=== PATIENT | female | born 1960 | race Caucasian/White ===

== ENCOUNTER 2016-11-15 20:44 | Observation (INO) | payer OTHER ==
[2016-11-15] MEDS ORDERED: ASPIRIN 81 MG (BABY) CHEWABLE TABLET PO ONE (20:56)
[2016-11-15] MEDS ORDERED: NORMAL SALINE 10 ML SYRINGE FLUSH IVP PRN (20:56)
[2016-11-15] MEDS ORDERED: Sodium Chloride 0.9% 1,000 ML PRIMARY IV ONE (20:56)
--- NOTE | 2016-11-15 20:58 | EKG ---
[address] [address] Measurements Intervals [place] Rate: 80 P: 61 LA: 182 QRS: 45 QRSD: 89 T: 39 QT: 369 QTc: 405 Interpretive Statements SINUS RHYTHM No previous ECG available for comparison Electronically Signed On 11-16-16 12:25:49 MST by Michael Ruiz [id number]
[2016-11-15] MEDS: NITROGLYCERIN 0.4 MG SL TAB (BOTTLE OF 3) SL PRN ×2 (21:03→21:32)
[2016-11-15 21:12] LABS: BASOPHILS # (AUTO) 0.03 10*3/UL; BASOPHILS % (AUTO) 0.3 % (0-1); EOSINOPHILS % (AUTO) 1.7 % (0-8); HEMATOCRIT 40.4 % (37.0-47.0); HEMOGLOBIN 13.6 g/dL (12.0-16.0); IMM GRAN % (AUTO) 0.1 % (0-5); IMM GRAN# (AUTO) 0.01 10*3/UL; LYMPHOCYTES # (AUTO) 3.42 10*3/uL; LYMPHOCYTES % (AUTO) 39.9 % (10-50); MEAN CORPUSCULAR HGB CONC 33.7 g/dL (33-37); MEAN PLATELET VOLUME 11.4 FL (7.4-12.2); MONOCYTES # (AUTO) 0.37 10*3/UL (0.3-0.8); MONOCYTES % (AUTO) 4.3 % (5-15); NEUTROPHILS % (AUTO) 53.7 % (50-80); RDW COEFFICIENT OF VARIATION 13.3 % (11.5-14.5); RED BLOOD COUNT 4.53 10^6/uL (4.20-5.40); WHITE BLOOD COUNT 8.58 10^3/uL (4.8-10.8)
[2016-11-15 21:17] LABS: PLATELET MORPHOLOGY COMMENT NORMAL MORPHOLOGY (NORM)
[2016-11-15 21:20] LABS: BILIRUBIN,TOTAL 0.4 mg/dL (0.3-1.2); BUN/CREATININE RATIO 19.23 (6-20); CALCIUM 8.8 mg/dL (8.7-10.7); CREATININE 1.3 mg/dL (0.50-1.20); TOTAL PROTEIN 6.5 g/dL (6.1-8.0)
[2016-11-15 21:32] LABS: CREATINE KINASE MB 0.28 NG/DL (0.00-5.00)
[2016-11-15 21:33] LABS: TROPONIN I < 0.012 ng/mL (< 0.040)
[2016-11-15] MEDS ORDERED: MORPHINE SULFATE 4 MG/1 ML IVP ONE (21:49)
--- NOTE | 2016-11-15 22:03 | PDOC ---
Chest Pain HPI - General Chief Complaint: Chest Pain Stated Complaint: Chest pain Date Seen by Provider: 11/15/16 Time Seen by Provider: 20:40 Source: Patient, Spouse Exam Limitations: POSITIVE: No limitations Treatment Prior to Arrival: REPORTS: None Nurse's Notes Reviewed & Considered: Yes - History of Present Illness Initial Comments: The patient is a 55-year-old female. She states that approximately 1500 she developed some left arm discomfort. She states that around 1900 she began to develop some left-sided chest pain which she describes as "like a pressure"left anterior chest and below left breast. She also complains of her "lips feeling numb". Patient has a long-standing history of chronic low back pain for which she takes several medications. She does not smoke. She has no known history of cardiopulmonary problems. Body Location Affected: REPORTS: Chest Timing: REPORTS: Constant Duration: 1-3 hours Severity: Moderate Persistent/Worse since (date): 11/15/16 Persistent/Worse since (time): 19:30 Context: REPORTS: Rest Quality: REPORTS: "Pain", Pressure Radiation: REPORTS: Shoulder (L), Arm (L) Associated Symptoms: DENIES: Nausea, Vomiting, Diaphoresis, Shortness of Breath , Hurts to Breathe, Palpitations, Productive Cough (blood), Productive Cough ( sputum), Weakness, Dizziness Modifying Factors: improves with: None Reported Similar Symptoms Previously: No Recently seen/treated/hospitalized: No Any Prior Injuries Related to Current Complaint?: No - Patient Home Medications Home Medications: Home Medications Atorvastatin Calcium 1 tab PO DAILY #90 tab 11/10/16 Duloxetine HCl 1 cap PO DAILY #90 cap 11/10/16 Nebivolol HCl [Bystolic] 10 mg PO DAILY #90 tab 11/10/16 Pregabalin [Lyrica] 1 cap PO BID #60 cap 11/10/16 Sumatriptan Succinate 100 mg PO ONCE #18 tab 11/10/16 Topiramate 1 tab PO QD #90 tab 11/10/16 Tramadol HCl 2 tab PO Q4-6H #90 tab 11/10/16 Trazodone HCl 1 tab PO QHS #90 tab 11/10/16 Zolpidem Tartrate 1 tab PO QHS #30 tab 11/10/16 - Patient Allergies Allergies/Adverse Reactions: Allergies Allergy/AdvReac Type Severity Reaction Status Date / Time codeine AdvReac Severe DYSPHORIA Verified 11/15/16 21:00 Past Medical History - heen HEENT History: Denies History Cardiovascular History: Denies History Respiratory History: Denies History Gastrointestinal History: Denies History Genitourinary History: Denies History Endocrine History: Denies History Musculoskeletal History: Back Pain Neurological History: Denies History Blood Disorders: Denies History Psychiatric History: Denies History History of Sexually Transmitted Diseases: No Female Reproductive History: Denies History Obstetrical History: Denies History Cancer History: Denies History In Past Year Been Physically Harmed or Verbally Threatened: No History of MDRO: No History of Other Communicable Diseases: No Tobacco Use: Never Smoker Alcohol Use: Occasionally Substance Use Type: None Previous Surgical History: Yes Type / Date of Surgery: HYSTERECTOMY Significant Family History: No pertinent family hx Past Medical History Reviewed: Reviewed - No Changes ROS - Limitations ROS Limitations: No Limitations Constitution: REPORTS: Denies Symptoms Cardiovascular: REPORTS: Chest Pain Respiratory: REPORTS: Denies Resp Symptoms Neurological: REPORTS: Denies Neuro Symptoms Gastrointestinal: REPORTS: Denies GI Symptoms Endocrine: REPORTS: Denies Symptoms Musculoskeletal: REPORTS: Back Pain (Chronic) Genitourinary: REPORTS: Denies Symptoms Eyes: REPORTS: Denies Symptoms ENT: REPORTS: Denies Symptoms Skin: REPORTS: Denies Skin Symptoms Lympathic: REPORTS: Denies Lympathic Symptoms Immunologic: POSITIVE: Denies Symptoms Psychiatric: POSITIVE: Denies Psych Symptoms Chest Pain PE - General Appearance General Appearance: REPORTS: Alert, Cooperative, No Acute Distress, No Evidence of Trauma - HEENT HEENT: POSITIVE: Head Inspection Nml, Eyes Inspection Nml, Ears Inspection Nml, Nose Inspection Nml, Oral/Dental Inspect. Nml, Pharynx Inspect. Nml, PERRL, EOMI - Neck Neck: REPORTS: Normal Inspection, No Carotid Bruit - Respiratory Respiratory: REPORTS: No Respiratory Distress, Breath Sounds Normal, Chest Non- Tender - Cardiovascular Cardiovascular: REPORTS: Regular Rate and Rhythm, Heart Sounds Normal, Equal Pulses, Strong Pulses, No Murmur, No Gallop, No Friction Rub, No JVD Peripheral Pulses: Radial (R): 2+, Radial (L): 2+ - Abdomen Abdomen: Soft: (All Quadrants), Normal Bowel Sounds: (All Quadrants), Denies Tenderness: (All Quadrants), No Splenomegaly: (All Quadrants), No Hepatomegaly: (All Quadrants), No Guarding: (All Quadrants), No Rebound: (All Quadrants), No Palpable Pulse: (All Quadrants), No Palpabale Mass: (All Quadrants), No Distention: (All Quadrants), No Rigidity: (All Quadrants) - Skin Skin: REPORTS: Intact, Normal For Race, Warm, Dry, No Rash - Extremities Extremity: Non-Tender: (All Extremities), Normal ROM: (All Extremities), Normal Inspection: (All Extremities) - Neurological / Psychological Neurological: POSITIVE: Affect Apporpriate, Oriented X3, 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 Normal As Tested, Motor Normal, Sensation Normal Images - Complete Complete: 1 - Area of described discomfort Chest Pain Progress - Results Reviewed by me Xrays/CTs/US Reviewed by me: Yes Discussed with Radiologist: No Radiology Findings: Portable chest x-ray normal Lab Results Reviewed: Yes Lab Results:: Laboratory Results 11/15/16 Range/Units 21:10 WBC 8.58 (4.8-10.8) 10^3/uL RBC 4.53 (4.20-5.40) 10^6/uL Hgb 13.6 (12.0-16.0) g/dL Hct 40.4 (37.0-47.0) % MCV 89.2 (81-99) FL MCH 30.0 (27-31) PG MCHC 33.7 (33-37) g/dL RDW Std Deviation 42.8 (39-50) fL RDW Coeff of Nikki 13.3 (11.5-14.5) % Plt Count 253 (140-350) 10*3/uL MPV 11.4 (7.4-12.2) FL Immature Gran % (Auto) 0.1 (0-5) % Neut % (Auto) 53.7 (50-80) % Lymph % (Auto) 39.9 (10-50) % Bryan % (Auto) 4.3 L (5-15) % Eos % (Auto) 1.7 (0-8) % Baso % (Auto) 0.3 (0-1) % Immature Gran # (Auto) 0.01 10*3/UL Neut # (Auto) 4.60 10*3/UL Lymph # (Auto) 3.42 10*3/uL Bryan # (Auto) 0.37 (0.3-0.8) 10*3/UL Eos # (Auto) 0.15 10*3/UL Baso # (Auto) 0.03 10*3/UL WBC Morphology Comment Normal morphology (NORM) Plt Morphology Comment Normal morphology (NORM) RBC Morph Comment Normal morphology (NORM) D-Dimer 0.36 (0.00-0.59) mg/L Sodium 138 (135-145) meq/L Potassium 4.0 (3.8-5.2) meq/L Chloride 108 (98-112) meq/L Carbon Dioxide 21 L (23-33) meq/L Anion Gap 9 (5-20) BUN 25 H (7-22) mg/dL Creatinine 1.3 H (0.50-1.20) mg/dL Estimated GFR 43 (>60 ml/min/1.73m(2)) BUN/Creatinine Ratio 19.23 (6-20) Glucose 104 (78-110) mg/dL Calculated Osmolality 289.0 (267-292) mOsm/kg Calcium 8.8 (8.7-10.7) mg/dL Total Bilirubin 0.4 (0.3-1.2) mg/dL AST 33 (8-39) IU/L ALT 55 H (9-52) IU/L Alkaline Phosphatase 136 H (38-126) IU/L CK-MB (CK-2) 0.28 (0.00-5.00) NG/DL Troponin I < 0.012 (< 0.040) ng/mL Total Protein 6.5 (6.1-8.0) g/dL Albumin 3.7 (3.5-4.8) g/dL Globulin 2.8 (2.50-4.10) g/dL Albumin/Globulin Ratio 1.30 (1.3-2.0) mg/g EKG Interpreted/Reviewed By Me:: Yes EKG Interpretation:: POSITIVE: Normal Sinus Rhythm, Normal Rate, Normal Intervals, Normal Reader, Normal QRS, Normal ST/T - Patient's Progress Pain Medication Addressed: POSITIVE: Yes (Patient given nitroglycerin without much improvement; then given morphine sulfate with better improvement) School/Work Release Addressed: POSITIVE: Not Applicable Re-Examine Time: 21:50 Re-Examine Comment: Normal lab studies, electrocardiogram and chest x-ray discussed with patient. Patient is admitted for further evaluation and rule out cardiac event. Status: POSITIVE: Improved, Re-Examined Quality Measure Initiative: CP/AMI: POSITIVE: EKG, ASA - Consult Consult (If Yes, Name of Consulting MD & Time Called): Yes (Dr. Santiago, hospitalist, [id number]) Consulting MD will see pt:: POSITIVE: [facility] [place] Admit Counseled: POSITIVE: Patient, Family, RE: Lab Results, RE: Radiology Results, RE : DX, RE: Need for F/U Patient Care Time - Estimated PCT Patient Care Time (In Minutes): 45 Vital Signs - Recent Vital Signs Vital Signs: Vital Signs (Last 8 hours) Temp Pulse Pulse Resp BP Pulse Ox 11/15/16 20:44 97.9 F 80 80 20 130/75 93 - VS Reviewed Vital Signs Reviewed: Yes Discharge Clinical Impression: Chest pain Discharge Disposition: Admit to Inpatient Condition: Good Date Decision to Admit to Inpatient: 11/15/16 Time Decision to Admit to Inpatient: 21:45
--- NOTE | 2016-11-15 22:30 | PDOC ---
History and Physical - History of Present Illness Date and Time of Service: 11/15/2016 11:15 PM Chief Complaint: Chest pain that started tonight around 7 PM History of Present Illness: This is a 55 years old female with medical history significant for history of hypertension, hyperlipidemia, history of migraines and chronic back pain who came into the hospital with history of chest pain that started tonight around 7 PM. She said the last 7 days she's been having like shocking feeling in her hands that comes for few seconds and then goes away with some numbness in her hands. Tonight she started to develop chest pain felt in the left side of the chest under her breast went to the shoulder and was described as pressure there was also some squeezing pain in the left arm. Some shortness of breath she rated her pain maybe about 6 to 7 out of 10. Because of that she came into the ER she was given aspirin and nitroglycerin and that helped lower the pain level by a point or so then she was given morphine and then lowered it down to 3-4. then the patient was admitted for further evaluation. There is no nausea but there was some lightheadedness. Never had these symptoms before. She said she has issues with the back and she is suppose to see a surgeon coming Thursday. She's been taking her tramadol 3 times a day for the last 3 days usually prior to that she used to take it twice a day. Past Medical History Medical History: 1.Migraine with aura. 2. Benign hypertension. 3. Anxiety. 4. Depression. 5. Hyperlipidemia. 6. Degenerative disc disease, cervical Surgical History: 1.Appendectomy. 2. Hysterectomy. 3. Other musculoskeletal srg 2014 (fussion of back s1 l5). 4. Total Hip Replacement 2007 (left ) Pertinent Family History: Her dad had a pacemaker, grandparent had a heart attack Tobacco Use: Never Smoker Substance Use Type: None Alcohol Use: Occasionally Medication / Allergies Home Medications: Home Medications Medication Instructions Recorded Confirmed Type Atorvastatin Calcium 1 tab PO DAILY #90 tab 11/10/16 11/15/16 Clinic Duloxetine HCl 1 cap PO DAILY #90 cap 11/10/16 11/15/16 Clinic Nebivolol HCl [Bystolic] 10 mg PO DAILY #90 tab 11/10/16 11/15/16 Clinic Pregabalin [Lyrica] 1 cap PO BID #60 cap 11/10/16 11/15/16 Clinic Sumatriptan Succinate 100 mg PO ONCE #18 tab 11/10/16 11/15/16 Clinic Topiramate 1 tab PO QD #90 tab 11/10/16 11/15/16 Clinic Tramadol HCl 2 tab PO Q4-6H #90 tab 11/10/16 11/15/16 [facility] Trazodone HCl 1 tab PO QHS #90 tab 11/10/16 11/15/16 Clinic Zolpidem Tartrate 1 tab PO QHS #30 tab 11/10/16 11/15/16 Clinic Allergies/Adverse Reactions: Allergies Allergy/AdvReac Type Severity Reaction Status Date / Time codeine AdvReac Severe DYSPHORIA Verified 11/16/16 06:25 Review of Systems - Review of Systems All Systems: Reviewed & No Additional Complaints Except as Stated Exam - General General Appearance: POSITIVE: No Acute Distress, Cooperative, Obese - Head Head Exam: POSITIVE: Normal Inspection, Atraumatic - Eye Eye Exam: POSITIVE: Normal Appearance - ENT ENT Exam: POSITIVE: Normal Exam - Neck Neck Exam: POSITIVE: Normal Inspection - Respiratory Respiratory Exam: POSITIVE: Clear to Auscultation - Bilaterally - Cardiovascular Cardiovascular Exam: POSITIVE: RRR - GI/Abdominal GI/Abdominal Exam: POSITIVE: Normal Bowel Sounds, Non Tender, Non Distended, Soft - Rectal Rectal Exam: POSITIVE: Deferred - External Exam: POSITIVE: Deferred Exam: POSITIVE: Deferred - Extremities Extremities Exam: POSITIVE: Normal Inspection - Back Back Exam: POSITIVE: Normal Inspection - Neurological Neurological Exam: POSITIVE: Alert, Oriented x 3, CN II-XII Intact, Moves All Extremities Equally - Psychiatric Psychiatric Exam: POSITIVE: Normal Affect - Integumentary Integumentary Exam: POSITIVE: Normal Color Results - Labs CBC and BMP: 11/15/16 21:10 11/16/16 03:35 - EKG Data Rate: Normal EKG Shows Normal: Sinus Rhythm - EKG Data Additional EKG Details: Q wave in III otherwise no significant abnormalities - Imaging Status: Image Reviewed by Me (No evidence of infiltrate or consolidation) Assessment and Plan - Patient Problems (1) Chest pain Current Visit: Yes Status: Acute Comment: Atypical chest pain, will repeat her enzymes will order stress test for her in the morning. There is some nonspecific abnormalities in LFTs we'll do ultrasound of her liver and gallbladder tomorrow (2) Hypertension Current Visit: Yes Status: Acute Comment: Same medication (3) Hyperlipidemia Current Visit: Yes Status: Acute Comment: Same medications (4) Back pain Current Visit: Yes Status: Acute Comment: Continue previous medications (5) Depression Current Visit: Yes Status: Acute Comment: Same medications
[2016-11-16] MEDS: NORMAL SALINE 10 ML SYRINGE FLUSH IVP PRN ×2 (00:23→18:04)
[2016-11-16] MEDS: MORPHINE SULFATE 2 MG/1 ML IVP PRN ×2 (00:25→18:04)
[2016-11-16] MEDS: traZODone Tab 50 MG TAB PO SCH ×2 (00:25→20:40)
[2016-11-16 03:51] LABS: BILIRUBIN,TOTAL 0.5 mg/dL (0.3-1.2); BUN/CREATININE RATIO 19.23 (6-20); CALCIUM 8.6 mg/dL (8.7-10.7); CREATININE 1.3 mg/dL (0.50-1.20); POTASSIUM 4.3 meq/L (3.8-5.2)
[2016-11-16] MEDS: Pantoprazole Inj 40 MG in Normal Saline Flush 10 ML IVP SCH (08:55)
[2016-11-16] MEDS ORDERED: DULOXETINE 60 MG CAPSULE PO SCH ×2 (09:00→21:00)
--- NOTE | 2016-11-16 09:08 | PDOC(PROG) ---
Date and Time of Service: 11/16/2016 9 AM Interval History: Subjective Patient feels better, pain level down to 2 she said in the chest. No issues today with the pain in the arm or numbness in the arm. Objective : Data - Labs CBC and BMP: 11/15/16 21:10 11/16/16 03:35 Labs - Last 24 Hours: Laboratory Results 11/16/16 Range/Units 03:35 Sodium 139 (135-145) meq/L Potassium 4.3 (3.8-5.2) meq/L Chloride 108 (98-112) meq/L Carbon Dioxide 24 (23-33) meq/L Anion Gap 7 (5-20) BUN 25 H (7-22) mg/dL Creatinine 1.3 H (0.50-1.20) mg/dL Estimated GFR 43 (>60 ml/min/1.73m(2)) BUN/Creatinine Ratio 19.23 (6-20) Glucose 89 (78-110) mg/dL Calculated Osmolality 290.0 (267-292) mOsm/kg Calcium 8.6 L (8.7-10.7) mg/dL Total Bilirubin 0.5 (0.3-1.2) mg/dL AST 38 (8-39) IU/L ALT 55 H (9-52) IU/L Alkaline Phosphatase 115 (38-126) IU/L Total Creatine Kinase 45 (30-135) IU/L Troponin I < 0.012 (< 0.040) ng/mL Total Protein 6.0 L (6.1-8.0) g/dL Albumin 3.4 L (3.5-4.8) g/dL Globulin 2.6 (2.50-4.10) g/dL Albumin/Globulin Ratio 1.30 (1.3-2.0) mg/g Objective : Exam - General General Appearance: No Acute Distress, Cooperative, Obese - Head Head Exam: Normal Inspection - Eye Eye Exam: Normal Appearance - ENT ENT Exam: Normal Exam - Neck Neck Exam: Normal Inspection - Respiratory Respiratory Exam: Clear to Auscultation - Bilaterally - Cardiovascular Cardiovascular Exam: RRR - GI/Abdominal GI/Abdominal Exam: Normal Bowel Sounds, Non Tender, Non Distended, Soft - Rectal Rectal Exam: Deferred - External Exam: Deferred - Extremities Extremities Exam: Normal Inspection - Back Back Exam: Normal Inspection - Neurological Neurological Exam: Alert, Oriented x 3, CN II-XII Intact, Moves All Extremities Equally - Psychiatric Psychiatric Exam: Normal Affect Assessment and Plan - Patient Problems (1) Chest pain Current Visit: Yes Status: Acute Comment: Enzymes so far negative. She'll have the first part of stress test today. We ordered an ultrasound also before the stress test because of minimal abnormalities in her LFTs (2) Hypertension Current Visit: Yes Status: Acute Comment: Same medications (3) Hyperlipidemia Current Visit: Yes Status: Acute Comment: Same medications (4) Back pain Current Visit: Yes Status: Acute Comment: Same med (5) Depression Current Visit: Yes Status: Acute Comment: Same med
[2016-11-16] MEDS: ASPIRIN 325 MG EC TABLET PO SCH (10:21)
[2016-11-16] MEDS: traMADol 50 MG TABLET PO SCH ×3 (10:21→20:41)
[2016-11-16] MEDS: Pregabalin Cap 150mg capsule PO SCH ×2 (10:21→20:42)
--- NOTE | 2016-11-16 10:52 | DI ---
HISTORY: Elevated liver function tests. COMPARISON: None available. TECHNIQUE: Sonographic images of the abdomen were obtained and submitted for interpretation. 69 sanjuana ges. FINDINGS: The pancreas is partially obscured by overlying bowel shadows. No focal hepatic masses identified. There are several small gallstones. Gallbladder wall measures 3 mm in thickness. Ultrasound Osorio' s sign is negative. The common bile duct measures 4 mm in diameter. The right kidney measures 10.0 cm in length. There is no contour deforming renal mass or hydronephro sis. The aorta measures up to 24 mm in diameter. IMPRESSION: 1. Multiple gallstones in the neck of the gallbladder. 2. Difficult examination due to patient body habitus. NOTE: The interpreting Radiologist was not present at the time of ultrasound interrogation.
--- NOTE | 2016-11-16 18:02 | EKG ---
[address] [address] Measurements Intervals [place] Rate: 73 P: 62 AK: 200 QRS: 54 QRSD: 82 T: 48 QT: 387 QTc: 412 Interpretive Statements SINUS RHYTHM Compared to ECG 11/15/2016 20:46:59 No significant changes Electronically Signed On 11-17-16 15:41:58 MST by Michael Ruiz [id number]
[2016-11-16] MEDS ORDERED: MORPHINE SULFATE 2 MG/1 ML IVP ONE (18:09)
[2016-11-16] MEDS ORDERED: ATORVASTATIN 20 MG TABLET PO SCH (21:00)
--- NOTE | 2016-11-17 06:00 | STRESSTEST ---
[facility] [place] Interpretive Statements Patient had Lexiscan stress test per protocol, baseline BP was 128/89, heart rate 68, baseline EKG was normal, after injection patient did have some shortness of breath and headache that''s resolved in the recovery phase Maximum BP was 128/89 maximum heart rate was 93 no significant EKG changes noted, Conclusion The EKG part of lexiscan stress test did not show signifcant EKG changes await nuclear scan results. [email or web address]
[2016-11-17 07:52] VITALS: RESP 16
[2016-11-17] MEDS: traMADol 50 MG TABLET PO SCH ×2 (08:40→14:46)
[2016-11-17] MEDS: ASPIRIN 325 MG EC TABLET PO SCH (08:40)
[2016-11-17] MEDS: Pregabalin Cap 150mg capsule PO SCH (08:41)
[2016-11-17] MEDS: Pantoprazole Inj 40 MG in Normal Saline Flush 10 ML IVP SCH (08:41)
[2016-11-17] MEDS: NORMAL SALINE 10 ML SYRINGE FLUSH IVP PRN (08:41)
--- NOTE | 2016-11-17 11:30 | DI ---
History: Chest pain. One view portable. Prior study: None. Findings: Bony structures are intact. Lungs are well expanded. No evidence of infiltrate or failure No cardiac enlargement Some dorsal spondylosis identified. Impression: No acute process Dorsal spondylosis observed
--- NOTE | 2016-11-17 15:21 | DI ---
Today Juan stress test rest myocardial perfusion scan 11/16/16 and 11/17/16 History: Chest pain. Evaluate for ischemia. Prior study: None. Monitoring physician Dr. Santiago Dose stress 31.7 mCi; rest 35 mCi Quantitative analysis colon [id number] program with low-dose limited CT chest and attenuation correc tion. SPECT imaging in 3 cardiac planes performed Examination quality: excellent The stress agent was Lexiscan, 0.4/5 mL Initial blood pressure 128/89, heart rate 69 Rest blood pressure 118/87, heart rate 86. Symptoms limited to headache and some shortness of breath with vasodilator administration. Findings: No significant ST wave depression observed. SPECT images do show some photopenia and count loss at the cardiac apex on the 2 relevant axes as doc umented in the HLA and VLA axes. The ejection fraction at rest is 88% and 76% with stress. There is n o scintigraphic evidence of transient ischemic dilatation. Cardiac motion is synchronous. There is no evidence of asymmetric contraction. Lung window settings s how no evidence of nodule or infiltrate although hypoinflated. Impression: No evidence of myocardial ischemia or abnormal wall motion. Apical thinning is nonreversi ble and is most likely anatomic. There is no history of prior infarction to explain the apical thinni ng
[2016-11-17 15:56] VITALS: TEMP 98.6
--- NOTE | 2016-11-17 18:09 | DCSUMMARY ---
Hospitalization Summary Admit Date: 11/15/16 Discharge Date: 11/17/16 Primary Diagnosis:: atypical chest pain, secondary to Secondary Diagnosis:: Biliary dyskinesia Hospital Course: This very pleasant 55-year-old female who came in with complaints of chest pain , intermittent, worsened with food, that also has radiating pain into the back and shoulder area. The patient had a stress test that showed up negative for coronary artery disease, and wall motion was normal along with a normal ejection fraction. The patient also had an ultrasound that showed stones in the gallbladder neck. She was afebrile, had normal total bilirubin, a slightly elevated AST at 3-4 points above the normal range, and an alkaline phosphatase that went from 135 on admission to normal. Her lipase is normal. Given these findings, we discussed options, and filled with best thing to do would be to schedule an appointment with general surgery, and the patient to see Dr. Maddox in the clinic tomorrow. Patient will be evaluated for possible outpatient laparoscopic cholecystectomy. I did discuss with the patient pain control options, and she feels that she does best with tramadol so should like to continue that. She does not want any antiemetics at this time. Patient denies any nausea or vomiting. Assessment and Plan: 1. As per discharge assessments noted 2. Disposition: Patient is discharged home. 3. Condition on discharge, stable and improved. 4. Diet: regular diet/low fat diet 5. Activities: resume normal activities 6. Follow-Up: 1. Dr. Maddox in the clinic tomorrow sometime around 3:[address] Caballero in about 10 days 7. Medications at the Time of Discharge: 8. Time, care, counseling and coordination of care for this discharge is greater than 30 minutes. Exam - Vitals Vital Signs: Vital Signs Temperature 98.6 F Temperature Source Temporal Artery Scan Pulse Rate [Apical] 76 Pulse Rate [Pulse Oximeter] 80 Pulse Rate 77 Respiratory Rate 16 Blood Pressure [Left Radial 124/73 Artery] Blood Pressure [Right Radial 105/61 Artery] Blood Pressure [Right Arm] 127/81 Blood Pressure 119/78 Pulse Ox 96 Oxygen Delivery Method Room Air Height 5 ft 7 in Weight 232 lb 6.4 oz - General General Appearance: POSITIVE: No Acute Distress, Cooperative - Head Head Exam: POSITIVE: Atraumatic - Eye Eye Exam: POSITIVE: No Scleral Icterus - Respiratory Respiratory Exam: POSITIVE: Clear to Auscultation - Bilaterally, Breathing Non Labored - Cardiovascular Cardiovascular Exam: POSITIVE: RRR, No Murmur, No Clicks, No Gallops, No Rubs, No JVD - GI/Abdominal GI/Abdominal Exam: POSITIVE: Normal Bowel Sounds, Non Tender, Non Distended, Soft - Extremities Extremities Exam: POSITIVE: No Clubbing Present, No Edema Present, No Cyanosis Present - Neurological Neurological Exam: POSITIVE: Alert, Oriented x 3, No Facial Droop, Speech Intact / Clear, Moves All Extremities Equally - Psychiatric Psychiatric Exam: POSITIVE: Normal Affect, Normal Mood Data Perinent Studies: Laboratory Results 11/15/16 11/16/16 11/16/16 Range/Units 21:10 03:35 09:15 WBC 8.58 (4.8-10.8) 10^3/uL RBC 4.53 (4.20-5.40) 10^6/uL Hgb 13.6 (12.0-16.0) g/dL Hct 40.4 (37.0-47.0) % MCV 89.2 (81-99) FL MCH 30.0 (27-31) PG MCHC 33.7 (33-37) g/dL RDW Std Deviation 42.8 (39-50) fL RDW Coeff of Nikki 13.3 (11.5-14.5) % Plt Count 253 (140-350) 10*3/uL MPV 11.4 (7.4-12.2) FL Immature Gran % (Auto) 0.1 (0-5) % Neut % (Auto) 53.7 (50-80) % Lymph % (Auto) 39.9 (10-50) % Archule[place] % (Auto) 4.3 L (5-15) % Eos % (Auto) 1.7 (0-8) % Baso % (Auto) 0.3 (0-1) % Immature Gran # (Auto) 0.01 10*3/UL Neut # (Auto) 4.60 10*3/UL Lymph # (Auto) 3.42 10*3/uL [place] # (Auto) 0.37 (0.3-0.8) 10*3/UL Eos # (Auto) 0.15 10*3/UL Baso # (Auto) 0.03 10*3/UL WBC Morphology Comment Normal morphology (NORM) Plt Morphology Comment Normal morphology (NORM) RBC Morph Comment Normal morphology (NORM) D-Dimer 0.36 (0.00-0.59) mg/L Sodium 138 139 (135-145) meq/L Potassium 4.0 4.3 (3.8-5.2) meq/L Chloride 108 108 (98-112) meq/L Carbon Dioxide 21 L 24 (23-33) meq/L Anion Gap 9 7 (5-20) BUN 25 H 25 H (7-22) mg/dL Creatinine 1.3 H 1.3 H (0.50-1.20) mg/dL Estimated GFR 43 43 (>60 ml/min/1.73m(2)) BUN/Creatinine Ratio 19.23 19.23 (6-20) Glucose 104 89 (78-110) mg/dL Calculated Osmolality 289.0 290.0 (267-292) mOsm/kg Calcium 8.8 8.6 L (8.7-10.7) mg/dL Total Bilirubin 0.4 0.5 (0.3-1.2) mg/dL AST 33 38 (8-39) IU/L ALT 55 H 55 H (9-52) IU/L Alkaline Phosphatase 136 H 115 (38-126) IU/L Total Creatine Kinase 45 39 (30-135) IU/L CK-MB (CK-2) 0.28 (0.00-5.00) NG/DL Troponin I < 0.012 < 0.012 < 0.012 (< 0.040) ng/mL Total Protein 6.5 6.0 L (6.1-8.0) g/dL Albumin 3.7 3.4 L (3.5-4.8) g/dL Globulin 2.8 2.6 (2.50-4.10) g/dL Albumin/Globulin Ratio 1.30 1.30 (1.3-2.0) mg/g Lipase (23-300) IU/L 11/17/16 Range/Units 15:59 WBC (4.8-10.8) 10^3/uL RBC (4.20-5.40) 10^6/uL Hgb (12.0-16.0) g/dL Hct (37.0-47.0) % MCV (81-99) FL MCH (27-31) PG MCHC (33-37) g/dL RDW Std Deviation (39-50) fL RDW Coeff of Nikki (11.5-14.5) % Plt Count (140-350) 10*3/uL MPV (7.4-12.2) FL Immature Gran % (Auto) (0-5) % Neut % (Auto) (50-80) % Lymph % (Auto) (10-50) % [place] % (Auto) (5-15) % Eos % (Auto) (0-8) % Baso % (Auto) (0-1) % Immature Gran # (Auto) 10*3/UL Neut # (Auto) 10*3/UL Lymph # (Auto) 10*3/uL [place] # (Auto) (0.3-0.8) 10*3/UL Eos # (Auto) 10*3/UL Baso # (Auto) 10*3/UL WBC Morphology Comment (NORM) Plt Morphology Comment (NORM) RBC Morph Comment (NORM) D-Dimer (0.00-0.59) mg/L Sodium (135-145) meq/L Potassium (3.8-5.2) meq/L Chloride (98-112) meq/L Carbon Dioxide (23-33) meq/L Anion Gap (5-20) BUN (7-22) mg/dL Creatinine (0.50-1.20) mg/dL Estimated GFR (>60 ml/min/1.73m(2)) BUN/Creatinine Ratio (6-20) Glucose (78-110) mg/dL Calculated Osmolality (267-292) mOsm/kg Calcium (8.7-10.7) mg/dL Total Bilirubin (0.3-1.2) mg/dL AST (8-39) IU/L ALT (9-52) IU/L Alkaline Phosphatase (38-126) IU/L Total Creatine Kinase (30-135) IU/L CK-MB (CK-2) (0.00-5.00) NG/DL Troponin I (< 0.040) ng/mL Total Protein (6.1-8.0) g/dL Albumin (3.5-4.8) g/dL Globulin (2.50-4.10) g/dL Albumin/Globulin Ratio (1.3-2.0) mg/g Lipase 125 (23-300) IU/L Patient Problems - Patient Problem List (1) Atypical chest pain Current Visit: Yes Status: Acute (2) Biliary dyskinesia Current Visit: Yes Status: Acute (3) Hypertension Current Visit: Yes Status: Acute Qualifiers: Hypertension type: essential hypertension Qualified Description: Essential hypertension Qualifier Code(s): (I10) Essential (primary) hypertension (4) Hyperlipidemia Current Visit: Yes Status: Acute Qualifiers: Hyperlipidemia type: unspecified Qualified Description: Hyperlipidemia , unspecified hyperlipidemia type Qualifier Code(s): (E78.5) Hyperlipidemia, unspecified
== END 2016-11-17 18:52 | disposition home or self-care (01) ==
LOC: ER 20:44 → MED/SURG 21:57
PROVIDERS: ADMIT Internal Medicine; ATTEND Internal Medicine
DX: R07.89 Other chest pain (principal); I10 Essential (primary) hypertension; E78.5 Hyperlipidemia, unspecified; M54.9 Dorsalgia, unspecified; F32.9 Major depressive disorder, single episode, unspecified; K82.8 Other specified diseases of gallbladder
CPT/HCPCS: 36415; 71010; 76705; 78452; 80053 ×2; 82550 ×2; 82553; 83690; 84484 ×2; 85025; 85379; 93005 ×2; 93010 ×2; 93016; 93017; 93018; 94761 ×2; 96361; 96374 ×3; 96375 ×2; 96376; 99284 ×2; A9500; J2785; J2270; J3490; J7030

== ENCOUNTER 2016-11-21 09:45 | Day surgery (SDC) | payer OTHER ==
[~2016-11-21 09:45] MED LIST: LIDOCAINE MPF 2% - 5 ML (20 MG/1 ML) ONE; LIDOCAINE W/ SODIUM BICARB 0.5 ML SYR ONE; Lactated Ringers 1,000 ML PRIMARY IV ONE; MIDAZOLAM 5 MG/1 ML ONE; ROCURONIUM 10 MG/1 ML - 5 ML VIAL IVP ONE; ceFAZolin Inj 2gm (Premix) 50 ML IV ONE; fentaNYL Inj 250 MCG/5 ML VIAL ONE
[2016-11-21] MEDS ORDERED: Bacteriostatic NaCl Inj 30ml Vial ONE (11:05)
[2016-11-21] MEDS ORDERED: Iothalamate Meglumine 30 ML VIAL IV ONE (11:06)
[2016-11-21] MEDS ORDERED: BUPIVACAINE 0.25% W/ EPI - 10 ML VIAL ONE (11:06)
[2016-11-21] MEDS ORDERED: Sodium Chloride 0.9% vial 20 ML ONE (11:07)
[2016-11-21] MEDS ORDERED: SCOPOLAMINE HYDROBROMIDE 1.5 MG - 1 EACH PATCH TRANSDERM ONE (11:26)
[2016-11-21] MEDS ORDERED: ONDANSETRON 4 MG/2 ML VIAL ONE (11:27)
[2016-11-21] MEDS ORDERED: DEXAMETHASONE PF 10 MG/1 ML VIAL ONE (11:27)
[2016-11-21] MEDS ORDERED: SUFENTANIL 50 MCG/1 ML ONE (11:58)
[2016-11-21] MEDS ORDERED: SUGAMMADEX SODIUM 200 MG/2 ML VIAL IV ONE (12:14)
[2016-11-21] MEDS ORDERED: KETOROLAC 30 MG/1 ML VIAL ONE (12:15)
[2016-11-21] MEDS ORDERED: PROMETHAZINE 25 MG/1 ML VIAL IM PRN (12:57)
[2016-11-21] MEDS ORDERED: NORMAL SALINE 10 ML SYRINGE FLUSH IVP PRN ×2 (12:57→13:10)
[2016-11-21] MEDS ORDERED: HYDROmorphone 2 MG/1 ML IVP PRN (12:57)
[2016-11-21] MEDS ORDERED: Nalbuphine Inj 20 MG/ML Ampule IVP PRN (12:57)
[2016-11-21] MEDS ORDERED: Lactated Ringers 1,000 ML PRIMARY IV SCH ×2 (13:00→13:15)
--- NOTE | 2016-11-21 13:08 | GEN.OPNOTE ---
Operative Note Surgery Date: 11/21/16 Preoperative Diagnosis: Cholelithiasis and chronic cholecystitis. Postoperative Diagnosis: Cholelithiasis and chronic cholecystitis. Procedure: Laparoscopic cholecystectomy with intraoperative cholangiogram. Surgeon: Sy Maddox MD Utilization Coordinator: Other (Mary Zelaya PA-C) Anesthesia Provider: Jackson Stark CRNA Anesthesia Type: General Estimated Blood Loss (mL): 5 Fluids: 1500 mL of crystalloid. 2 g of IV Ancef at the start of the procedure. 30 mg of IV and 30 mg of IM Toradol at the end of the procedure. Pathology: Specimen to pathology. Indications: Symptomatic gallstones. Findings: 2 larger stones and sludge within the gallbladder. No other intra-abdominal pathology. Intraoperative cholangiogram showed a normal sized duct with a normal distal tapering and free flow into the duodenum. There was a normal branching pattern and no filling defects. Complications: None. Operative Summary: The patient was taken to the operating room and placed on the operating table in the supine position. Following induction of general anesthetic the abdomen was prepped and draped in a sterile fashion. A surgical timeout was done. The infraumbilical region was infiltrated with 1/4% Marcaine with epinephrine. An incision was made. The abdominal wall was elevated. A Veres needle was placed without apparent injury and a pneumoperitoneum was induced. The veres needle was withdrawn. A 10 mm trocar was placed without apparent injury and a laparoscope was inserted. Under direct visualization and following Marcaine injection a 10 mm trocar was placed in the epigastrium and 2x5 mm trochars were placed along the costal margin. The gallbladder was grasped and elevated. Blunt dissection was used to free the cystic duct. A clip was placed along the neck of the gallbladder. A hole was made in the side wall of the cystic duct. A [place] cholangiocatheter was inserted. Intraoperative cholangiogram was taken and was normal as previously dictated. The [place] catheter was withdrawn. 2 clips were placed on the distal cystic duct and the duct was divided. The cystic artery was isolated. 2 clips were placed proximally and one distally and the artery was divided. The gallbladder was taken from the hepatic bed using electrocautery. Hemostasis was assured. Appropriate irrigation and suctioning were performed. Final check for hemostasis was made. 5 mL of Marcaine was placed in the gallbladder fossa and 5 over the dome of the liver. The laparoscope was moved to the epigastric port. The gallbladder was grasped with a large grasper and brought up to the umbilical trocar site. The gallbladder was brought out through the trocar site without difficulty. The fascial defect at the umbilicus was closed with a simple 0 Vicryl. A final check for hemostasis was made. The CO2 was burped from the abdominal cavity. The trochars were removed under direct visualization. No other trocar sites required fascial closure. The skin wounds were closed with inverted interrupted or running subcuticular 4-0 Monocryl followed by Mastisol Steri- Strips and an appropriate dressing. Patient tolerated the procedure well without complication. Patient was taken to the recovery room in stable condition. All counts were correct.
[2016-11-21] MEDS ORDERED: ONDANSETRON 4 MG/2 ML VIAL IVP PRN (13:10)
[2016-11-21] MEDS ORDERED: MORPHINE SULFATE 2 MG/1 ML IVP PRN (13:10)
[2016-11-21] MEDS ORDERED: HYDROcodone-APAP 5 MG -325 MG TABLET PO PRN (13:10)
--- NOTE | 2016-11-21 13:40 | DI ---
Operative cholangiogram images. History cholelithiasis. 5 view study. Images are technically acceptable. The common hepatic common bile ducts are normal without filling de fect. There is prompt spillage into the duodenum. Impression: Unremarkable operative cholangiogram. No ductal dilatation or filling defects identified
[2016-11-21] MEDS ORDERED: HYDROcodone-APAP 5 MG -325 MG TABLET PO ONE (14:03)
[2016-11-21 14:57] VITALS: RESP 18; TEMP 97.7
== END 2016-11-21 14:45 | disposition home or self-care (01) ==
LOC: SDSC 09:45
PROVIDERS: ATTEND Surgery
DX: K80.10 Calculus of gallbladder with chronic cholecystitis without obstruction (principal)
CPT/HCPCS: 47563; 74300; A4216; J0690; J1885; J2704; J3010; Q9961; J1100; J2001; J2250; J2405; J3490; J7120

== ENCOUNTER → 2016-12-02 | Outpatient (CLI) | payer OTHER ==
[2016-12-02 16:24] LABS: BILIRUBIN,TOTAL 0.4 mg/dL (0.3-1.2); BUN/CREATININE RATIO 17.5 (6-20); CALCIUM 9.5 mg/dL (8.7-10.7); CREATININE 1.2 mg/dL (0.50-1.20); POTASSIUM 4.5 meq/L (3.8-5.2); TOTAL PROTEIN 6.7 g/dL (6.1-8.0)
== END ==
LOC: MOB LAB 13:40
PROVIDERS: ATTEND Family Medicine
DX: L65.9 Nonscarring hair loss, unspecified (principal); I10 Essential (primary) hypertension; E78.5 Hyperlipidemia, unspecified
CPT/HCPCS: 36415; 80053; 84439; 84443

== ENCOUNTER → 2017-03-12 | Outpatient (CLI) | payer OTHER ==
--- NOTE | 2017-03-12 21:14 | DI ---
XR KNEE 1 OR 2 VWS,03/12/2017 4:14 PM: Clinical History: Acute right knee pain Previous Exam: None at this facility. Findings: AP and lateral views of the right knee are obtained, and demonstrate anatomic alignment without fract ures. There is mild loss of joint space medially and laterally with osteophyte formation. Impression: Mild tricompartmental degenerative osteoarthritis
== END ==
LOC: RAD 16:27
PROVIDERS: ATTEND Family Medicine
DX: M25.561 Pain in right knee (principal); M17.11 Unilateral primary osteoarthritis, right knee
CPT/HCPCS: 73560

== ENCOUNTER → 2017-03-16 | Outpatient (CLI) | payer OTHER ==
--- NOTE | 2017-03-16 09:58 | DI ---
XR KNEE 3 VW,03/16/2017 9:34 AM: Clinical History: Right knee pain Previous Exam: March 12, 2017 Findings: 3 views of the right knee are obtained, and demonstrate anatomic alignment without fractures. There i s loss of joint space within the medial and anterior compartments. Osteophyte formation is also noted . Impression: Degenerative changes predominantly within the medial and anterior compartments.
== END ==
LOC: ORTHO 09:44
PROVIDERS: ATTEND Orthopaedic Surgery
DX: M25.561 Pain in right knee (principal); M25.461 Effusion, right knee; M17.11 Unilateral primary osteoarthritis, right knee
CPT/HCPCS: 73562

== ENCOUNTER → 2017-03-25 | Outpatient (CLI) | payer OTHER ==
--- NOTE | 2017-03-25 17:01 | DI ---
MRI LOW EXTREMITY JNT W/O CN,03/25/2017 1:00 PM: Clinical History: Right knee joint effusion. Previous Exam: Plain films performed March 16, 2017 Findings: Multiplanar MR images are obtained through the right knee without contrast. Bony alignment is anatomic and no fractures are seen. There is a full-thickness osteochondral defect involving the medial tibial plateau along the medial margin. There are some full-thickness osteochondral defects involving the patellar apex. There is a small knee joint effusion. Tricompartmental osteophyte formation is seen. Plexus cystic mass near the insertion of the lateral head of the gastrocnemius tendon on the distal f emur. The major vascular flow voids are unremarkable. The surrounding subcutaneous fat is also unremarkable. The anterior and posterior cruciate ligaments are intact. The medial and lateral collateral ligaments are also intact. Signal within the musculature is unremarkable. There are degenerative tears involving the anterior horn and body of the medial meniscus. Lateral meniscus is intact. Impression: 1. 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 2. Small knee joint effusion. 3. Complex tear of the anterior horn and body of the medial meniscus. 4. Multiloculated ganglion cyst which appears to be associated with the tendon of the lateral head of the gastrocnemius tendon.
== END ==
LOC: MRI 12:56
PROVIDERS: ATTEND Orthopaedic Surgery
DX: M25.461 Effusion, right knee (principal); S83.231A Complex tear of medial meniscus, current injury, right knee, initial encounter; M67.461 Ganglion, right knee; M94.261 Chondromalacia, right knee
CPT/HCPCS: 73721

== ENCOUNTER → 2017-04-02 | Outpatient (CLI) | payer OTHER ==
--- NOTE | 2017-04-03 14:33 | DI ---
RIGHT SHOULDER, 04/02/2017 10:55 AM: Clinical History: Acute right shoulder pain. Previous Exam: None at this facility. 4 views are submitted. There is no acute soft tissue, osseous, or joint abnormality. Reading: Normal right shoulder exam.
--- NOTE | 2017-04-03 14:35 | DI ---
LEFT SHOULDER, 04/02/2017 10:55 AM: Clinical History: Acute left shoulder pain. Previous Exam: None at this facility. 4 views are submitted. There is no acute soft tissue, osseous, or joint abnormality. The visualized p ortions of the left lung in the left apex are normal. Reading: Normal left shoulder exam.
== END ==
LOC: ORTHO 11:30
PROVIDERS: ATTEND Orthopaedic Surgery
DX: M25.512 Pain in left shoulder (principal); M25.511 Pain in right shoulder
CPT/HCPCS: 73030

== ENCOUNTER 2017-11-17 18:09 | Observation (INO) ==
[2017-11-17] MEDS ORDERED: NORMAL SALINE 10 ML SYRINGE FLUSH IVP PRN ×2 (18:41→22:36)
[2017-11-17 19:13] LABS: BASOPHILS # (AUTO) 0.04 10*3/UL; BASOPHILS % (AUTO) 0.4 % (0-1); EOSINOPHILS # (AUTO) 0.14 10*3/UL; EOSINOPHILS % (AUTO) 1.2 % (0-8); Hematocrit [HCT] 42.1 % (37.0-47.0); Hemoglobin [HGB] 14.3 g/dL (12.0-16.0); LYMPHOCYTES # (AUTO) 3.73 10*3/uL; MEAN CORPUSCULAR VOLUME 88.3 FL (81-99); MEAN PLATELET VOLUME 11.4 FL (7.4-12.2); MONOCYTES # (AUTO) 0.44 10*3/UL (0.3-0.8); MONOCYTES % (AUTO) 3.9 % (5-15); NEUTROPHILS # (AUTO) 6.98 10*3/UL; NEUTROPHILS % (AUTO) 61.4 % (50-80); RED BLOOD COUNT 4.77 10^6/uL (4.20-5.40)
[2017-11-17 19:14] LABS: PLATELET MORPHOLOGY COMMENT NORMAL MORPHOLOGY (NORM); RBC MORPHOLOGY COMMENT NORMAL MORPHOLOGY (NORM); WBC MORPHOLOGY COMMENT NORMAL MORPHOLOGY (NORM)
[2017-11-17 19:23] LABS: BUN/CREATININE RATIO 17.27 (6-20); SERUM ALBUMIN 4.2 g/dL (3.5-4.8)
--- NOTE | 2017-11-17 20:06 | DI ---
AP CHEST X-RAY, 11/17/2017 6:41 PM : Clinical History: Chest pain. Previous Exam: 11/15/2016. There is no acute soft tissue or bony abnormality. Heart size is normal. Lungs are clear. Mediastinal structures are normal. There are no pulmonary nodules. Reading: Normal chest x-ray. There has been no significant interval change.
[2017-11-17] MEDS ORDERED: LIDOCAINE W/ SODIUM BICARB 0.5 ML SYR ONE (20:42)
[2017-11-17] MEDS ORDERED: LIDOCAINE W/ SODIUM BICARB 0.5 ML SYR SUBD PRN (22:36)
[2017-11-17] MEDS ORDERED: DOCUSATE 100 MG CAPSULE PO PRN (22:36)
[2017-11-17] MEDS ORDERED: ONDANSETRON 4 MG/2 ML VIAL IVP PRN (22:36)
[2017-11-17] MEDS ORDERED: CYCLOBENZAPRINE 10 MG TABLET PO PRN (22:36)
[2017-11-17] MEDS ORDERED: ACETAMINOPHEN 325 MG TABLET PO PRN (22:36)
[2017-11-17] MEDS ORDERED: CALCIUM CARBONATE 500 MG (TUMS) CHEWABLE TABLET PO PRN (22:36)
[2017-11-17] MEDS ORDERED: traZODone Tab 50 MG TAB PO SCH (23:00)
--- NOTE | 2017-11-17 23:16 | PDOC ---
HPI - History of Present Illness Date of Service: 11/17/17 Time of Service: 23:10 Chief Complaint: Chest pain History of Present Illness: This very pleasant 56-year-old female who comes in tonight with chest pain fairly sudden onset today, it happened 3 times today as well. It started early and then went away and came back in went away again on its own. Around 5:00 today, came back, it was not associated with shortness of breath, no fevers and no cough. She states it was a squeezing type pain with some tightness. She states that she's not had a pain quite like this before and she was here last year with chest pain that turned out to be related to cholecystitis and cholelithiasis. She had a stress test, chemical stress test at that time, that was negative for coronary artery disease. The patient does not smoke. She has a family history of coronary artery disease, she has hypertension and hypercholesterolemia but no diabetes. Interestingly, the patient's liver enzymes and alkaline phosphatase were found to be elevated and I do not know if this is in relation to her statin therapy or not. She does not have risk factors for hepatitis, no IV drug use and no history of transfusions. She denies shortness of breath with all these issues going on. She denies any nausea or vomiting. She states that she recently switched diets and is doing high concentration of fruits and vegetables and proteins with occasional grains. She has noted a weight loss of 6 pounds. She denies any heartburn symptoms and denies any anxiety symptoms. She does not have any reproducible chest pain with palpation. Then trouble getting an IV in the emergency room and were only able to get a small gauge IV in the hand, this was after multiple sticks. We were able to place a 20-gauge which radiology feels will be adequate for a CTA of the chest for the contrast bolus. Her d-dimer was slightly elevated. She's never had a blood clot before. Past Medical History Medical History: 1.Migraine with aura. 2. Benign hypertension. 3. Anxiety. 4. Depression. 5. Hyperlipidemia. 6. Degenerative disc disease, cervical. 7. Obesity, with dietary plan to reduce weight Surgical History: 1.Appendectomy. 2. Hysterectomy. 3. Other musculoskeletal srg 2014 (fussion of back s1 l5). 4. Total Hip Replacement 2007 (left ). 5. Cholecystectomy in 2017 Pertinent Family History: Her dad had a pacemaker, grandparent had a heart attack Past Social History: Does not smoke or drink alcohol. . Has healthy children, 3 of them. Lives in [place], [place]. Tobacco Use: Never Smoker In the Past 12 Months, Have Used or Abuse Any of the Following Substance: None Alcohol Use: None Medication / Allergies Home Medications: Home Medications Medication Instructions Recorded Confirmed Type Atorvastatin Calcium 1 tab PO DAILY #90 tab 11/10/16 11/17/17 Rx Duloxetine HCl 1 cap PO DAILY #90 cap 11/10/16 11/17/17 Rx Nebivolol HCl [Bystolic] 10 mg PO DAILY #90 tab 11/10/16 11/17/17 Rx Trazodone HCl 1 tab PO QHS #90 tab 11/10/16 11/17/17 Rx cyclobenzaprine 10 mg tablet 10 mg PO TID PRN #30 tab 08/27/17 11/17/17 Rx naproxen 500 mg tablet 500 mg PO Q12H #30 tab 11/04/17 11/17/17 Rx Allergies/Adverse Reactions: Allergies 3 Allergy/AdvReac Type Severity Reaction Status Date / Time codeine AdvReac Severe DYSPHORIA Verified 11/17/17 19:37 diazepam [From Valium] AdvReac Mild NOT Verified 11/17/17 19:37 APPLICABLE hydrocodone AdvReac Mild headache Verified 11/17/17 19:37 Review of Systems - Review of Systems All Systems: Reviewed & No Additional Complaints Except as Stated (I did a 12 point review systems and it was negative other than that discussed in history present illness and that noted below.) - Gastrointestinal Gastrointestinal / Abdominal: REPORTS: Diarrhea (Resolved today with when necessary Imodium at home. Attributed to dietary changes) - Neurological Neurologic: REPORTS: Headache (Chronic migraine headaches. Has MRI scheduled for next Thursday. States that she's been using more sumatriptan lately. No neurologic symptoms otherwise.) Exam - Vitals Vital Signs: Vital Signs Height 5 ft 7 in Weight 240 lb 3.2 oz Vital Signs - Last Taken Temperature 96.8 F 11/17/17 18:13 Pulse Rate 74 11/17/17 18:13 Respiratory Rate 16 11/17/17 18:13 Blood Pressure 159/132 11/17/17 18:13 Pulse Ox 94 11/17/17 18:13 - General General Appearance: No Acute Distress, Cooperative - Head Head Exam: Normal Inspection, Normocephalic, Atraumatic - Eye Eye Exam: POSITIVE: No Scleral Icterus - ENT ENT Exam: POSITIVE: Mucous Membranes Moist - Neck Neck Exam: Normal Inspection, No Tenderness, No Lymphadenopathy, No Thyromegaly - Respiratory Respiratory Exam: POSITIVE: Clear to Auscultation - Bilaterally, Breathing Non Labored, Normal to Percussion and Palpation - Cardiovascular Cardiovascular Exam: POSITIVE: RRR, No Murmur, No Clicks, No Gallops, No Rubs, No JVD Additional Cardiovascular Details: Nonreproducible chest pain - GI/Abdominal GI/Abdominal Exam: POSITIVE: Normal Bowel Sounds, Non Tender, Non Distended, Soft - Rectal Rectal Exam: POSITIVE: Deferred - External Exam: POSITIVE: Deferred Exam: POSITIVE: Deferred - Extremities Extremities Exam: POSITIVE: No Clubbing Present, No Edema Present, No Cyanosis Present - Back Back Exam: POSITIVE: No CVA Tenderness - Neurological Neurological Exam: POSITIVE: Alert, Oriented x 3, CN II-XII Intact, No Facial Droop, Speech Intact / Clear, Moves All Extremities Equally - Psychiatric Psychiatric Exam: POSITIVE: Normal Affect, Normal Mood Results - Labs CBC and BMP: 11/17/17 19:08 11/17/17 19:08 Additional Lab Results: 11/17/17 11/17/17 11/17/17 19:08 19:08 19:08 D-Dimer 0.81 H Calcium 9.5 Total Bilirubin 0.6 AST 296 H ALT 163 H Alkaline Phosphatase 303 H CK-MB (CK-2) 1.07 Troponin I < 0.012 Total Protein 6.9 Albumin 4.2 Globulin 2.8 Albumin/Globulin Ratio 1.50 - Imaging Status: Image Reviewed by Me (Chest x-ray, on my view negative for pneumonia.) Assessment and Plan - Patient Problems (1) Chest pain Current Visit: Yes Status: Acute Code(s): R07.9 - Chest pain, unspecified (2) Elevated liver enzymes Current Visit: Yes Status: Acute Code(s): R74.8 - Abnormal levels of other serum enzymes (3) Headache, chronic migraine without aura Current Visit: Yes Status: Acute Code(s): G43.709 - Chronic migraine without aura, not intractable, without status migrainosus Qualifiers: Status migrainosus presence: without status migrainosus Intractability: not intractable Qualified Code(s): G43.709 - Chronic migraine without aura, not intractable, without status migrainosus (4) Hypertension Current Visit: Yes Status: Acute Code(s): I10 - Essential (primary) hypertension Qualifiers: Hypertension type: essential hypertension Qualified Code(s): I10 - Essential (primary) hypertension (5) Hyperlipidemia Current Visit: Yes Status: Acute Code(s): E78.5 - Hyperlipidemia, unspecified Qualifiers: Hyperlipidemia type: unspecified Qualified Code(s): E78.5 - Hyperlipidemia , unspecified - Assessment / Plan Additional Assessment/Plan Details: Admit the patient. Get troponin in a.m. I do not think this is myocardial infarction as patient has a negative Lexiscan stress test done last year. I think we really need the CTA for the chest. We were able to place a 20-gauge , and radiology feels that will be good enough for the IV bolus. IV flushes very well. We will order that study and see. In terms of the pain symptoms, I'll try a dose of Toradol. This could be GERD symptoms. If worsened by anti-inflammatory, that may give us a clue. If CT of the chest is negative for pulmonary embolism, then I think we need to trial of proton pump inhibitor. With her migraine headaches, I think we may make some changes to her blood pressure medications to treat both blood pressure and prophylax against migraines. I think the patient should continue her diet as she's described a lot of good intake in terms of fruits and vegetables. Her liver enzymes could be multifactorial. The differential is large. Ultimately I think we need to stop the cholesterol medication at this point. The liver enzymes and alkaline phosphatase should be retested in about 3 weeks or so to make sure that they're coming down. But this could be related to nonalcoholic steatohepatitis, patient certainly has the body habitus for that. This could also be hereditary hemachromatosis, perhaps viral hepatitis, but before doing a large workup, we'll start by eliminating the statin medication. The patient was in agreement with this strategy. His workup to be done as an outpatient. MRI scan for the headaches is scheduled for following Thursday. I will keep that as an outpatient study. The patient has a good neurologic exam, no focal findings, and cranial nerves appear intact. It's unlikely that there is a central lesion. I discussed above plan with the patient and she agreed.
[2017-11-17] MEDS ORDERED: KETOROLAC 15 MG/1 ML VIAL IVP PRN (23:25)
[2017-11-18] MEDS: Naproxen Tab 500 MG TAB PO SCH ×2 (00:20→13:10)
--- NOTE | 2017-11-18 01:20 | DI ---
EXAM: CT Angiography Chest With Intravenous Contrast CLINICAL HISTORY: Chest pain. Elevated d-dimer. Rule out PE. TECHNIQUE: Axial computed tomographic angiography images of the chest with intravenous contrast using pulmonary embolism protocol. MIP reconstructed images were created and reviewed. Coronal and sagittal reformatted images were created and reviewed. CONTRAST: 70 mL of Isovue 300 administered intravenously. COMPARISON: No relevant prior studies available. FINDINGS: Pulmonary arteries: No evidence of pulmonary embolism. Aorta: No acute findings. No thoracic aortic aneurysm or dissection. Lungs: Mild atelectasis in the left lung.. No focal consolidation or pulmonary edema. Pleural space: Unremarkable. No pleural effusion. No pneumothorax. Heart: Unremarkable. No cardiomegaly. No pericardial effusion. No evidence of RV dysfunction. Bones/joints: Mild curvature of the thoracic spine. Mild degenerative changes. No acute fracture. No dislocation. Soft tissues: Suspect right thyroid lobe nodule(s). Lymph nodes: Unremarkable. No enlarged lymph nodes. Visualized upper abdomen. Fluid noted within the visualized colon. Probable cholecystectomy, incompletely seen. IMPRESSION: 1. No evidence of pulmonary embolism or other acute chest abnormality to account for pain. 2. Fluid noted within the visualized colon in the upper abdomen. Correlate for diarrheal state. 3. Suspect right thyroid lobe nodule(s). Nonemergent thyroid ultrasound can be considered for further evaluation.
[2017-11-18] MEDS: PANTOPRAZOLE 40 MG TABLET PO SCH ×2 (01:44→08:09)
--- NOTE | 2017-11-18 02:18 | PDOC ---
Chest Pain HPI - General Chief Complaint: Chest Pain Stated Complaint: chest pain Date Seen by Provider: 11/17/17 Time Seen by Provider: 18:15 Source: Patient, Spouse Exam Limitations: POSITIVE: No limitations Treatment Prior to Arrival: REPORTS: Aspirin Nurse's Notes Reviewed & Considered: Yes EMS Report Reviewed & Considered: Unavailable - History of Present Illness Initial Comments: The patient is a 56-year-old female who arrives to the emergency room by the [facility]. 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 This episode was not severe and she rated the intensity of the pain as a 3 on a scale of 10 and lasted about 45 minutes. She had another similar episode around 2 PM on she was cleaning her house. She had another episode proximal be 2 hours SNAP ATTACHER which she describes as "severe" radiating the intensity of the pain as an 8-9 on a scale of 10 and lasted about an hour. She states that the pain was "heavy, squeezing, with radiation into the left jaw and tingling in her left hand". He called 911 and the ambulance service gave her 4 baby aspirin in route. Patient has a history of hypercholesterolemia and hypertension. Upon arrival to the emergency room her pain is much less. Body Location Affected: REPORTS: Chest Timing: REPORTS: Intermittent (As above; 3 episodes since 10 AM) Duration: <24 hours Severity: Moderate Gone now, lasted (minutes):: 120 Context: REPORTS: Activity Quality: REPORTS: Aching, "Pain", Other ("Heaviness, squeezing ") Radiation: REPORTS: Jaw (L), Arm (L) Associated Symptoms: DENIES: Nausea, Vomiting, Diaphoresis, Shortness of Breath , Hurts to Breathe, Palpitations, Productive Cough (blood), Productive Cough ( sputum), Weakness, Dizziness Modifying Factors: improves with: None Reported Similar Symptoms Previously: No Recently seen/treated/hospitalized: No Any Prior Injuries Related to Current Complaint?: No - Patient Home Medications Home Medications: Home Medications Atorvastatin Calcium 1 tab PO DAILY #90 tab 11/10/16 Duloxetine HCl 1 cap PO DAILY #90 cap 11/10/16 Nebivolol HCl [Bystolic] 10 mg PO DAILY #90 tab 11/10/16 Trazodone HCl 1 tab PO QHS #90 tab 11/10/16 cyclobenzaprine 10 mg tablet 10 mg PO TID PRN #30 tab 08/27/17 naproxen 500 mg tablet 500 mg PO Q12H #30 tab 11/04/17 - Patient Allergies Allergies/Adverse Reactions: Allergies 3 Allergy/AdvReac Type Severity Reaction Status Date / Time codeine AdvReac Severe DYSPHORIA Verified 11/17/17 19:37 diazepam [From Valium] AdvReac Mild NOT Verified 11/17/17 19:37 APPLICABLE hydrocodone AdvReac Mild headache Verified 11/17/17 19:37 Past Medical History - heen HEENT History: Denies History Cardiovascular History: Hypertension, Hyperlipidemia Additional Cardiovasular History: WAS RECENTLY IN ER WITH CHEST PAIN BUT HEART DISEASE RULED OUT. Respiratory History: Sleep Apnea, Snoring Gastrointestinal History: Denies History Genitourinary History: Denies History Endocrine History: Other (please comment) Additional Endocrine History: THYROID NODULE Musculoskeletal History: Arthritis, Back Pain Prosthesis or Implant: Yes (LEFT HIP TOTAL) Additional Musculoskeletal History: DEGENERATIVE DISC DISEASE Neurological History: Migraines, Motion Sickness Additional Neurological History: PONV AFTER SURGERIES Blood Disorders: Denies History Psychiatric History: Depression, Anxiety Disorders, OCD, PTSD History of Sexually Transmitted Diseases: No Female Reproductive History: Denies History Obstetrical History: Denies History Cancer History: Skin In Past Year Been Physically Harmed or Verbally Threatened: No History of MDRO: No History of Other Communicable Diseases: No Tobacco Use: Never Smoker Alcohol Use: Occasionally In the Past 12 Months, Have Used or Abuse Any Substance: None Previous Surgical History: Yes Type / Date of Surgery: APPY/ L5-S1 FUSION/LEFT ZACH/ TUBAL/ HYSTERECTOMY Anesthesia Reactions: Yes (PONV AND ITCHING) Malignant Hyperthermia: No Significant Family History: Heart disease, Cancer, Hypertension Past Medical History Reviewed: Reviewed - No Changes ROS - Limitations ROS Limitations: No Limitations Constitution: REPORTS: Denies Symptoms Cardiovascular: REPORTS: Chest Pain Respiratory: REPORTS: Denies Resp Symptoms Neurological: REPORTS: Denies Neuro Symptoms Gastrointestinal: REPORTS: Denies GI Symptoms Endocrine: REPORTS: Denies Symptoms Musculoskeletal: REPORTS: Denies MS Symptoms Genitourinary: REPORTS: Denies Symptoms Eyes: REPORTS: Denies Symptoms ENT: REPORTS: Denies Symptoms Skin: REPORTS: Denies Skin Symptoms Lympathic: REPORTS: Denies Lympathic Symptoms Immunologic: POSITIVE: Denies Symptoms Psychiatric: POSITIVE: Denies Psych Symptoms Chest Pain PE - General Appearance General Appearance: REPORTS: Alert, Cooperative, No Acute Distress, No Evidence of Trauma - HEENT HEENT: POSITIVE: Head Inspection Nml, Eyes Inspection Nml, Ears Inspection Nml, Nose Inspection Nml, Oral/Dental Inspect. Nml, Pharynx Inspect. Nml, PERRL, EOMI - Neck Neck: REPORTS: Normal Inspection, No Carotid Bruit - Respiratory Respiratory: REPORTS: No Respiratory Distress, Breath Sounds Normal, Chest Non- Tender - Cardiovascular Cardiovascular: REPORTS: Regular Rate and Rhythm, Heart Sounds Normal, Equal Pulses, Strong Pulses, No Murmur, No Gallop, No Friction Rub, No JVD Peripheral Pulses: Radial (R): 2+, Radial (L): 2+ - Abdomen Abdomen: Soft: (All Quadrants), Normal Bowel Sounds: (All Quadrants), Denies Tenderness: (All Quadrants), No Splenomegaly: (All Quadrants), No Hepatomegaly: (All Quadrants), No Guarding: (All Quadrants), No Rebound: (All Quadrants), No Palpable Pulse: (All Quadrants), No Palpabale Mass: (All Quadrants), No Distention: (All Quadrants), No Rigidity: (All Quadrants) - Skin Skin: REPORTS: Intact, Normal For Race, Warm, Dry, No Rash - Extremities Extremity: Non-Tender: (All Extremities), Normal ROM: (All Extremities), Normal Inspection: (All Extremities) - Neurological / Psychological Neurological: POSITIVE: 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 AST ALT and alkaline phosphatase elevated) CBC and BMP: 11/17/17 19:08 11/17/17 19:08 EKG Interpreted/Reviewed By Me:: Yes (normal) EKG Interpretation:: POSITIVE: Normal Sinus Rhythm, Normal Rate, Normal Intervals, Normal Odin, Normal QRS, Normal ST/T - Patient's Progress Pain Medication Addressed: POSITIVE: Not Applicable School/Work Release Addressed: POSITIVE: Not Applicable Re-Examine Time: 22:05 Re-Examine Comment: Had difficulty establishing an IV and were not able to establish an antecubital access. Therefore, radiologist declines to do a CTA to investigate elevated d-dimer. The cannot do a VQ scan until tomorrow morning. Patient is admitted for further evaluation of chest pain and will probably be started on Lovenox pending resolution of the question of PE. Status: POSITIVE: Improved, Re-Examined Quality Measure Initiative: CP/AMI: POSITIVE: EKG, ASA - Consult Counseled: POSITIVE: Patient, RE: Lab Results, RE: Radiology Results, RE: DX, RE : Need for F/U Patient Care Time - Estimated PCT Patient Care Time (In Minutes): 60 Vital Signs - Recent Vital Signs Vital Signs: Vital Signs (Last 8 hours) Temp Pulse Pulse Resp BP BP Pulse Ox 11/17/17 23:32 97.2 F 61 20 146/83 94 11/17/17 22:33 96.6 F L 85 18 123/79 96 - VS Reviewed Vital Signs Reviewed: Yes Discharge Clinical Impression: Chest pain, Elevated d-dimer Discharge Disposition: Admit to Inpatient Condition: Fair Date Decision to Admit to Inpatient: 11/17/17 Time Decision to Admit to Inpatient: 22:00
[2017-11-18 08:55] VITALS: RESP 16
[2017-11-18] MEDS ORDERED: DULOXETINE 60 MG CAPSULE PO SCH (09:00)
[2017-11-18] MEDS ORDERED: PROPRANOLOL ER 60 MG CAPSULE PO SCH ×2 (09:00)
[2017-11-18] MEDS ORDERED: NEBIVOLOL HCL 5 MG TABLET PO SCH (09:00)
--- NOTE | 2017-11-18 09:14 | EKG ---
[address] [place] [address] [place] [address] Measurements Intervals [place] Rate: 70 P: 50 [place]: 181 QRS: 52 QRSD: 87 T: 30 QT: 408 QTc: 428 Interpretive Statements SINUS RHYTHM Borderline LOW QRS VOLTAGE IN PRECORDIAL LEADS [QRS DEFLECTION < 1.0 mV IN CHEST LEADS] INTERPRETATION BASED ON A DEFAULT AGE OF 40 YEARS Compared to ECG 11/16/2016 18:00:07 Low QRS voltage now present No acute injury pattern Electronically Signed On 11-18-17 10:57:54 MST by Wilfredo Ball MD [email or web address]
[2017-11-18 13:17] VITALS: BP 107/65; TEMP 98; O2SAT 92
[2017-11-18] MEDS ORDERED: SUMAtriptan Tab 25 MG TAB PO ONE (14:31)
--- NOTE | 2017-11-18 15:13 | DCSUMMARY ---
Hospitalization Summary Admit Date: 11/17/2017 Discharge Date: 11/18/17 Primary Diagnosis:: atypical chest pain, question acid reflux Hospital Course: This very pleasant 56-year-old female who came in with chest pain, atypical, she had a prior negative stress test, negative troponins, and EKG that was not reflective of acute coronary artery disease or acute coronary syndrome. She was admitted, they had trouble getting IV access in the emergency room but we were able to get a large enough gauge on the floor to proceed with doing a CTA of the chest, and the patient was found to be negative for pulmonary emboli. Incidentally they found a right sided nodule and the patient tells me these are chronic in nature. I recommended she get an ultrasound and thyroid studies done sometime around February to make sure the contrast is cleared out and does not interfere with anything. I will defer any uptake scans to primary physician. The patient's chest pain significantly improved to the hospital stay. She had a no history of nausea or vomiting or shortness of breath. She is ready to go home. We did speak about her migraines prior to going home as well, and I think she might do better on Inderal as it will treat not only her blood pressure but could also prophylax against migraines. She was very agreeable to that course of action. For the chest pain, we will trial of proton pump inhibitor as there are no other "red flags" that would indicate EGD is urgently needed. If chest pain persists despite this trial, I've advised the patient to visit with her primary physician to reevaluate. Assessment and Plan: 1. As per discharge assessments noted 2. Disposition: Patient is discharged home. 3. Condition on discharge, stable and improved. 4. Diet: regular diet 5. Activities: resume normal activities 6. Follow-Up: 1. Dr. Caballero one week 2. 7. Medications at the Time of Discharge: Home Medications Medication Instructions Recorded Confirmed Type Duloxetine HCl 1 cap PO DAILY #90 cap 11/10/16 11/17/17 Rx Trazodone HCl 1 tab PO QHS #90 tab 11/10/16 11/17/17 Rx cyclobenzaprine 10 mg tablet 10 mg PO TID PRN #30 tab 08/27/17 11/17/17 Rx naproxen 500 mg tablet 500 mg PO Q12H #30 tab 11/04/17 11/17/17 Rx Omeprazole Magnesium [Prilosec Otc] 20 mg PO DAILY #30 tab 11/18/17 Rx Propranolol HCl ER [Inderal LA] 60 mg PO DAILY #30 cap.sa.24h 11/18/17 Rx 8. Time, care, counseling and coordination of care for this discharge is greater than 30 minutes. Exam - Vitals Vital Signs: Vital Signs Temperature 98 F Temperature Source Temporal Artery Scan Pulse Rate [Pulse Oximeter] 69 Pulse Rate [Telemetry] 70 Pulse Rate 60 Respiratory Rate 16 Blood Pressure [Left Arm] 107/65 Blood Pressure 123/79 Pulse Ox 92 Oxygen Delivery Method Room Air Height 5 ft 7 in Weight 239 lb 12.8 oz - General General Appearance: No Acute Distress, Cooperative - Eye Eye Exam: POSITIVE: No Scleral Icterus - ENT ENT Exam: POSITIVE: Mucous Membranes Moist - Respiratory Respiratory Exam: POSITIVE: Clear to Auscultation - Bilaterally, Breathing Non Labored - Cardiovascular Cardiovascular Exam: POSITIVE: RRR, No Murmur, No Clicks, No Gallops, No Rubs, No JVD - GI/Abdominal GI/Abdominal Exam: POSITIVE: Normal Bowel Sounds, Non Tender, Non Distended, Soft - Extremities Extremities Exam: POSITIVE: No Clubbing Present, No Edema Present, No Cyanosis Present - Neurological Neurological Exam: POSITIVE: Alert, Oriented x 3, No Facial Droop, Speech Intact / Clear, Moves All Extremities Equally Data Peritnent Studies: Laboratory Results 11/17/17 11/17/17 11/17/17 Range/Units 19:08 19:08 19:08 WBC 11.35 H (4.8-10.8) 10^3/uL RBC 4.77 (4.20-5.40) 10^6/uL Hgb 14.3 (12.0-16.0) g/dL Hct 42.1 (37.0-47.0) % MCV 88.3 (81-99) FL MCH 30.0 (27-31) PG MCHC 34.0 (33-37) g/dL RDW Std Deviation 42.4 (39-50) fL RDW Coeff of Nikki 13.3 (11.5-14.5) % Plt Count 279 (140-350) 10*3/uL MPV 11.4 (7.4-12.2) FL Immature Gran % (Auto) 0.2 (0-5) % Neut % (Auto) 61.4 (50-80) % Lymph % (Auto) 32.9 (10-50) % Robeson % (Auto) 3.9 L (5-15) % Eos % (Auto) 1.2 (0-8) % Baso % (Auto) 0.4 (0-1) % Immature Gran # (Auto) 0.02 10*3/UL Neut # (Auto) 6.98 10*3/UL Lymph # (Auto) 3.73 10*3/uL Robeson # (Auto) 0.44 (0.3-0.8) 10*3/UL Eos # (Auto) 0.14 10*3/UL Baso # (Auto) 0.04 10*3/UL WBC Morphology Comment Normal morphology (NORM) Plt Morphology Comment Normal morphology (NORM) RBC Morph Comment Normal morphology (NORM) D-Dimer 0.81 H (0.00-0.59) mg/L Sodium 141 (135-145) meq/L Potassium 4.1 (3.8-5.2) meq/L Chloride 106 (98-112) meq/L Carbon Dioxide 21 L (23-33) meq/L Anion Gap 14 (5-20) BUN 19 (7-22) mg/dL Creatinine 1.1 (0.50-1.20) mg/dL Estimated GFR 52 (>60 ml/min/1.73m(2)) BUN/Creatinine Ratio 17.27 (6-20) Glucose 94 (78-110) mg/dL Calculated Osmolality 293.0 H (267-292) mOsm/kg Calcium 9.5 (8.7-10.7) mg/dL Total Bilirubin 0.6 (0.3-1.2) mg/dL AST 296 H (8-39) IU/L ALT 163 H (9-52) IU/L Alkaline Phosphatase 303 H (38-126) IU/L CK-MB (CK-2) (0.00-5.00) NG/ML Troponin I (< 0.040) ng/mL Total Protein 6.9 (6.1-8.0) g/dL Albumin 4.2 (3.5-4.8) g/dL Globulin 2.8 (2.50-4.10) g/dL Albumin/Globulin Ratio 1.50 (1.3-2.0) mg/g 11/17/17 Range/Units 19:08 WBC (4.8-10.8) 10^3/uL RBC (4.20-5.40) 10^6/uL Hgb (12.0-16.0) g/dL Hct (37.0-47.0) % MCV (81-99) FL MCH (27-31) PG MCHC (33-37) g/dL RDW Std Deviation (39-50) fL RDW Coeff of Nikki (11.5-14.5) % Plt Count (140-350) 10*3/uL MPV (7.4-12.2) FL Immature Gran % (Auto) (0-5) % Neut % (Auto) (50-80) % Lymph % (Auto) (10-50) % Robeson % (Auto) (5-15) % Eos % (Auto) (0-8) % Baso % (Auto) (0-1) % Immature Gran # (Auto) 10*3/UL Neut # (Auto) 10*3/UL Lymph # (Auto) 10*3/uL Robeson # (Auto) (0.3-0.8) 10*3/UL Eos # (Auto) 10*3/UL Baso # (Auto) 10*3/UL WBC Morphology Comment (NORM) Plt Morphology Comment (NORM) RBC Morph Comment (NORM) D-Dimer (0.00-0.59) mg/L Sodium (135-145) meq/L Potassium (3.8-5.2) meq/L Chloride (98-112) meq/L Carbon Dioxide (23-33) meq/L Anion Gap (5-20) BUN (7-22) mg/dL Creatinine (0.50-1.20) mg/dL Estimated GFR (>60 ml/min/1.73m(2)) BUN/Creatinine Ratio (6-20) Glucose (78-110) mg/dL Calculated Osmolality (267-292) mOsm/kg Calcium (8.7-10.7) mg/dL Total Bilirubin (0.3-1.2) mg/dL AST (8-39) IU/L ALT (9-52) IU/L Alkaline Phosphatase (38-126) IU/L CK-MB (CK-2) 1.07 (0.00-5.00) NG/ML Troponin I < 0.012 (< 0.040) ng/mL Total Protein (6.1-8.0) g/dL Albumin (3.5-4.8) g/dL Globulin (2.50-4.10) g/dL Albumin/Globulin Ratio (1.3-2.0) mg/g [address] [place] [address] PH: [phone]: [phone] FAX: [phone] ~DIAGNOSTIC IMAGING REPORT~ Patient: Connie Ramos : 1960 Sex: F Age: 56 Exam Name: CT CTA Chest Non-Coronary [facility] Exam Date: 11/17/17 Report # : [id number] CPT Code: 50301 EMR/MR #: [id number] Ordering: JEOVANNY BOWERS Admiting: JEOVANNY BOWERS DO Primary: Rick Caballero MD Attending: JEVOANNY BOWERS DO Signed EXAM: CT Angiography Chest With Intravenous Contrast CLINICAL HISTORY: Chest pain. Elevated d-dimer. Rule out PE. TECHNIQUE: Axial computed tomographic angiography images of the chest with intravenous contrast using pulmonary embolism protocol. MIP reconstructed images were created and reviewed. Coronal and sagittal reformatted images were created and reviewed. CONTRAST: 70 mL of Isovue 300 administered intravenously. COMPARISON: No relevant prior studies available. FINDINGS: Pulmonary arteries: No evidence of pulmonary embolism. Aorta: No acute findings. No thoracic aortic aneurysm or dissection. Lungs: Mild atelectasis in the left lung.. No focal consolidation or pulmonary edema. Pleural space: Unremarkable. No pleural effusion. No pneumothorax. Heart: Unremarkable. No cardiomegaly. No pericardial effusion. No evidence of RV dysfunction. Bones/joints: Mild curvature of the thoracic spine. Mild degenerative changes. No acute fracture. No dislocation. Soft tissues: Suspect right thyroid lobe nodule(s). Lymph nodes: Unremarkable. No enlarged lymph nodes. Visualized upper abdomen. Fluid noted within the visualized colon. Probable cholecystectomy, incompletely seen. IMPRESSION: 1. No evidence of pulmonary embolism or other acute chest abnormality to account for pain. 2. Fluid noted within the visualized colon in the upper abdomen. Correlate for diarrheal state. 3. Suspect right thyroid lobe nodule(s). Nonemergent thyroid ultrasound can be considered for further evaluation. Dictated By: Huong Ray MD Signed By: 11/18/17 0120 Huong Ray MD Patient Problems - Patient Problem List (1) Chest pain Current Visit: Yes Status: Acute Code(s): R07.9 - Chest pain, unspecified Category: Medical (2) Elevated liver enzymes Current Visit: Yes Status: Acute Code(s): R74.8 - Abnormal levels of other serum enzymes Category: Medical (3) Headache, chronic migraine without aura Current Visit: Yes Status: Acute Code(s): G43.709 - Chronic migraine without aura, not intractable, without status migrainosus Qualifiers: Status migrainosus presence: without status migrainosus Intractability: not intractable Qualified Code(s): G43.709 - Chronic migraine without aura, not intractable, without status migrainosus Category: Medical (4) Hypertension Current Visit: Yes Status: Acute Code(s): I10 - Essential (primary) hypertension Qualifiers: Hypertension type: essential hypertension Qualified Code(s): I10 - Essential (primary) hypertension Category: Medical (5) Hyperlipidemia Current Visit: Yes Status: Acute Code(s): E78.5 - Hyperlipidemia, unspecified Qualifiers: Hyperlipidemia type: unspecified Qualified Code(s): E78.5 - Hyperlipidemia , unspecified Category: Medical
== END 2017-11-18 16:44 | disposition home or self-care (01) ==
LOC: ER 18:09 → MED/SURG 18:09
PROVIDERS: ADMIT Family Medicine; ATTEND Family Medicine

== ENCOUNTER 2018-02-09 08:00 | Inpatient (IN) ==
[2018-03-02] MEDS ORDERED: Lactated Ringers 1,000 ML PRIMARY IV ONE (05:51)
[2018-03-02] MEDS ORDERED: TRANEXAMIC ACID 1,000 MG / 10 ML VIAL ONE (05:51)
[2018-03-02] MEDS ORDERED: ceFAZolin Inj 2gm (Premix) 2 GM/50 ML BAG IV ONE ×2 (05:51→06:00)
[2018-03-02] MEDS ORDERED: LIDOCAINE W/ SODIUM BICARB 0.5 ML SYR ONE (05:51)
[2018-03-02] MEDS ORDERED: Sodium Chloride 0.9% 0 ML IV ONE (05:52)
[2018-03-02] MEDS ORDERED: BUPivacaine Liposome/PF (Exparel) Inj 20ml vial INFIL ONE ×2 (06:00→06:55)
[2018-03-02] MEDS ORDERED: Lactated Ringers 1,000 ML PRIMARY IV SCH (06:00)
[2018-03-02] MEDS ORDERED: LIDOCAINE W/ SODIUM BICARB 0.5 ML SYR SUBD ONE (06:00)
[2018-03-02] MEDS ORDERED: Ketorolac Inj 30 MG, Morphine Inj 5 MG, BUPivacaine Inj 0.25% PF 150 MG SPLASH ONE ×3 (06:00)
[2018-03-02] MEDS ORDERED: Tranexamic Acid 1,000 MG in Sodium Chloride 0.9% 100 ML IV SCH (06:00)
[2018-03-02 06:18] LABS: BILIRUBIN,URINE NEGATIVE (NEG); CLARITY,URINE CLEAR (CLEAR); COLOR,URINE YELLOW (Y); GLUCOSE, URINE (UA) NEGATIVE (NEG); OCCULT BLOOD,URINE NEGATIVE (NEG); PROTEIN,URINE NEGATIVE (NEG); UROBILINOGEN,URINE 0.2 EU/dL (0.2)
[2018-03-02 06:19] LABS: URINE SAMPLE TYPE CLEAN CATCH URINE
[2018-03-02] MEDS ORDERED: Sodium Chloride 0.9% 2,000 ML ONE (06:45)
[2018-03-02] MEDS ORDERED: Sodium Chloride 0.9% 500 ML ONE ×2 (06:45→11:07)
[2018-03-02] MEDS ORDERED: Gentamicin Inj 40 MG/ML VIAL ONE (06:55)
[2018-03-02] MEDS ORDERED: HEPARIN 10,000 UNIT/1 ML ONE (06:55)
[2018-03-02] MEDS ORDERED: Sodium Chloride 0.9% vial 40 ML ONE (06:56)
[2018-03-02] MEDS ORDERED: DEXAMETHASONE PF 10 MG/1 ML VIAL ONE (07:12)
[2018-03-02] MEDS ORDERED: ONDANSETRON 4 MG/2 ML VIAL ONE (07:12)
[2018-03-02] MEDS ORDERED: Sodium Chloride 0.9% 100 ML IV ONE (07:19)
[2018-03-02] MEDS ORDERED: PANTOPRAZOLE IV 40 MG VIAL ONE (07:19)
[2018-03-02] MEDS ORDERED: MIDAZOLAM 5 MG/1 ML ONE (07:27)
[2018-03-02] MEDS ORDERED: LIDOCAINE MPF 2% - 5 ML (20 MG/1 ML) ONE ×2 (07:27→10:59)
[2018-03-02] MEDS ORDERED: PROPOFOL 10 MG/1 ML (200 MG/20 ML) VIAL IV ONE (07:27)
[2018-03-02] MEDS ORDERED: fentaNYL Inj 250 MCG/5 ML VIAL ONE (07:27)
[2018-03-02] MEDS ORDERED: KETAMINE 100 MG/1 ML - 5 ML ONE (07:28)
[2018-03-02] MEDS ORDERED: ROCURONIUM 10 MG/1 ML - 5 ML VIAL IVP ONE ×2 (07:32→08:54)
[2018-03-02 07:35] LABS: BASOPHILS # (AUTO) 0.03 10*3/UL; BASOPHILS % (AUTO) 0.4 % (0-1); EOSINOPHILS # (AUTO) 0.13 10*3/UL; EOSINOPHILS % (AUTO) 1.7 % (0-8); Hematocrit [HCT] 40.7 % (37.0-47.0); Hemoglobin [HGB] 13.5 g/dL (12.0-16.0); LYMPHOCYTES # (AUTO) 2.89 10*3/uL; MEAN CORPUSCULAR HEMOGLOBIN 30.2 PG (27-31); MEAN CORPUSCULAR HGB CONC 33.2 g/dL (33-37); MEAN CORPUSCULAR VOLUME 91.1 FL (81-99); MEAN PLATELET VOLUME 11.2 FL (7.4-12.2); MONOCYTES % (AUTO) 5.4 % (5-15); NEUTROPHILS # (AUTO) 4.01 10*3/UL; NEUTROPHILS % (AUTO) 53.7 % (50-80); RED BLOOD COUNT 4.47 10^6/uL (4.20-5.40)
[2018-03-02] MEDS ORDERED: Acetaminophen 1000mg Inj 1,000 MG/100 ML VIAL IV ONE (07:45)
[2018-03-02 07:47] LABS: PLATELET MORPHOLOGY COMMENT NORMAL MORPHOLOGY (NORM); RBC MORPHOLOGY COMMENT NORMAL MORPHOLOGY (NORM); WBC MORPHOLOGY COMMENT NORMAL MORPHOLOGY (NORM)
[2018-03-02] MEDS ORDERED: SUFENTANIL 50 MCG/1 ML ONE ×2 (09:12→10:28)
[2018-03-02] MEDS ORDERED: SUGAMMADEX SODIUM 200 MG/2 ML VIAL IV ONE (10:44)
[2018-03-02] MEDS ORDERED: KETOROLAC 30 MG/1 ML VIAL ONE (10:52)
[2018-03-02] MEDS ORDERED: NORMAL SALINE 10 ML SYRINGE FLUSH IVP PRN ×2 (11:44→12:47)
[2018-03-02] MEDS ORDERED: LIDOCAINE W/ SODIUM BICARB 0.5 ML SYR SUBD PRN (11:44)
[2018-03-02] MEDS ORDERED: HYDROmorphone 2 MG/1 ML IVP PRN (11:44)
[2018-03-02] MEDS ORDERED: Prochlorperazine Edisylate Inj 10mg/2ml vial IVP PRN (11:44)
--- NOTE | 2018-03-02 11:46 | CRNA.PROGR ---
Anesthesia Time - - Start date: 03/02/18 End date: 03/02/18 - Procedure/Recovery Time Anesthesia : Time In: 08:03 Anesthesia : Time Out: 11:43 Anesthesia : Total Time: 220 - Total Anesthesia Time Total Anesthesia Time (minutes): 220 - Other Weight: 104.326 kg Height: 5 ft 7 in Body Mass Index (BMI): 36.0 Physical Status: P2 Anesthesia Type: General Anesthesia : ET
--- NOTE | 2018-03-02 11:46 | CRNA.PROGR ---
Anesthesia Recovery Phase I - Post Anesthesia Evaluation Patient's Condition on Arrival in Phase I: Stable Pain Level: 0
[2018-03-02] MEDS ORDERED: ONDANSETRON 4 MG/2 ML VIAL IVP PRN (12:47)
[2018-03-02] MEDS ORDERED: MAG HYDROX/AL HYDROX/SIMETH 30 ML SUSP PO PRN (12:47)
[2018-03-02] MEDS ORDERED: diphenhydrAMINE 25 MG CAPSULE PO PRN (12:47)
[2018-03-02] MEDS ORDERED: BISACODYL 10 MG SUPPOSITORY RECTAL PRN (12:47)
[2018-03-02] MEDS ORDERED: Prochlorperazine Tab 10 MG TAB PO PRN (12:47)
[2018-03-02] MEDS ORDERED: ACETAMINOPHEN 325 MG TABLET PO PRN (12:47)
[2018-03-02] MEDS ORDERED: BISACODYL 5 MG TABLET PO PRN (12:47)
[2018-03-02] MEDS ORDERED: CYCLOBENZAPRINE 10 MG TABLET PO PRN (12:47)
[2018-03-02] MEDS ORDERED: Ondansetron ODT Tab 8 MG TAB PO PRN (12:47)
[2018-03-02] MEDS ORDERED: CALCIUM CARBONATE 500 MG (TUMS) CHEWABLE TABLET PO PRN (12:47)
[2018-03-02] MEDS: HYDROmorphone 2 MG/1 ML IVP PRN ×2 (13:21→19:18)
[2018-03-02] MEDS: ceFAZolin Inj 2gm (Premix) 2 GM/50 ML BAG IV SCH ×2 (13:22→21:08)
[2018-03-02] MEDS: Lactated Ringers 1,000 ML PRIMARY IV SCH (13:22)
[2018-03-02] MEDS: oxyCODONE/APAP 7.5/325 Tab 1 TAB TAB PO PRN ×3 (13:34→21:09)
[2018-03-02] MEDS ORDERED: traZODone Tab 50 MG TAB PO SCH (21:00)
[2018-03-02] MEDS: PROPRANOLOL ER 60 MG CAPSULE PO SCH (21:08)
[2018-03-02] MEDS: TERBINAFINE HCL 250 MG PO SCH (21:08)
[2018-03-02] MEDS: TRAZODONE 150 MG PO SCH (21:08)
[2018-03-02] MEDS: DOCUSATE 100 MG CAPSULE PO SCH (21:08)
[2018-03-02] MEDS: DULOXETINE 60 MG CAPSULE PO SCH (21:09)
--- NOTE | 2018-03-02 21:21 | DI ---
XR HIP COMPLETE MIN 2VW U/L,03/02/2018 11:19 AM: Clinical History: Right hip osteoarthritis. Previous Exam: February 25, 2018 Findings: AP views of the pelvis as well as a crosstable lateral view of the right hip are obtained, and demons trate postsurgical changes consistent with a right total hip arthroplasty. There is a HIEN drain noted and overlying skin jordan seen. Postsurgical changes are seen of the lower lumbar spine. Impression: Status post right total hip arthroplasty otherwise unremarkable.
[2018-03-03] MEDS: oxyCODONE/APAP 7.5/325 Tab 1 TAB TAB PO PRN ×6 (00:57→21:29)
[2018-03-03] MEDS: Lactated Ringers 1,000 ML PRIMARY IV SCH (02:15)
[2018-03-03 05:36] LABS: Hematocrit [HCT] 36.3 % (37.0-47.0); MEAN CORPUSCULAR HEMOGLOBIN 30.5 PG (27-31); MEAN CORPUSCULAR HGB CONC 33.1 g/dL (33-37); MEAN CORPUSCULAR VOLUME 92.4 FL (81-99); MEAN PLATELET VOLUME 12.1 FL (7.4-12.2); RED BLOOD COUNT 3.93 10^6/uL (4.20-5.40)
[2018-03-03] MEDS: OMEPRAZOLE 20 MG CAPSULE PO SCH (08:20)
[2018-03-03] MEDS: ASPIRIN 325 MG EC TABLET PO SCH ×2 (08:20→21:31)
[2018-03-03] MEDS: DOCUSATE 100 MG CAPSULE PO SCH ×2 (08:21→21:30)
--- NOTE | 2018-03-03 08:27 | ORTHO.PROG ---
Last Taken Vital Signs: Vital Signs - Last Taken Temperature 97.5 F 03/03/18 04:44 Pulse Rate 78 03/03/18 07:00 Respiratory Rate 16 03/03/18 07:00 Blood Pressure 99/58 03/03/18 04:44 Pulse Ox 93 03/03/18 05:04 Subjective: Patient doing well this morning is gotten up a couple times to go to the bathroom. Patient inadvertently pulled her drain out last night. Objective: Examination: Shows that she has superficial suction drain in place there is no deep drain at the current time the dressing covering this is dry she has a mild amount of swelling to the leg she has no calf, popliteal, adductor hiatus or lower thigh pain. Motor and sensory exam is nonfocal Laboratory Results 03/02/18 03/02/18 03/03/18 Range/Units 07:10 07:10 04:12 WBC (4.8-10.8) 10^3/uL RBC (4.20-5.40) 10^6/uL Hgb (12.0-16.0) g/dL Hct (37.0-47.0) % MCV (81-99) FL MCH (27-31) PG MCHC (33-37) g/dL RDW Std Deviation (39-50) fL RDW Coeff of Nikki (11.5-14.5) % Plt Count (140-350) 10*3/uL MPV (7.4-12.2) FL Sodium 139 (135-145) meq/L Potassium 5.0 (3.8-5.2) meq/L Chloride 105 (98-112) meq/L Carbon Dioxide 24 (23-33) meq/L Anion Gap 10 (5-20) BUN 22 (7-22) mg/dL Creatinine 1.1 (0.50-1.20) mg/dL Estimated GFR 51 (>60 ml/min/1.73m(2)) BUN/Creatinine Ratio 20.00 (6-20) Glucose 93 (78-110) mg/dL Calculated Osmolality 290.0 (267-292) mOsm/kg Calcium 8.7 (8.7-10.7) mg/dL Rheumatoid Factor < 8.6 (0.00-11.99) IU/ML Blood Type A POSITIVE Antibody Screen Negative Crossmatch See Detail 03/03/18 Range/Units 04:12 WBC 9.42 (4.8-10.8) 10^3/uL RBC 3.93 L (4.20-5.40) 10^6/uL Hgb 12.0 (12.0-16.0) g/dL Hct 36.3 L (37.0-47.0) % MCV 92.4 (81-99) FL MCH 30.5 (27-31) PG MCHC 33.1 (33-37) g/dL RDW Std Deviation 46.5 (39-50) fL RDW Coeff of Nikki 14.0 (11.5-14.5) % Plt Count 134 L (140-350) 10*3/uL MPV 12.1 (7.4-12.2) FL Sodium (135-145) meq/L Potassium (3.8-5.2) meq/L Chloride (98-112) meq/L Carbon Dioxide (23-33) meq/L Anion Gap (5-20) BUN (7-22) mg/dL Creatinine (0.50-1.20) mg/dL Estimated GFR (>60 ml/min/1.73m(2)) BUN/Creatinine Ratio (6-20) Glucose (78-110) mg/dL Calculated Osmolality (267-292) mOsm/kg Calcium (8.7-10.7) mg/dL Rheumatoid Factor (0.00-11.99) IU/ML Blood Type Antibody Screen Crossmatch Vital Signs (24 hrs) Temp Pulse Pulse Pulse Resp BP BP 03/03/18 07:00 78 16 03/03/18 05:04 03/03/18 04:44 97.5 F 82 20 99/58 03/03/18 00:50 90 20 129/90 03/02/18 20:22 97.2 F 77 16 116/67 03/02/18 16:58 97.2 F 81 18 100/68 03/02/18 14:41 97 F 80 20 119/77 03/02/18 14:15 97.2 F 85 18 124/79 03/02/18 13:45 96.6 F L 77 20 128/80 03/02/18 13:30 96.4 F L 81 18 124/88 03/02/18 13:15 96.4 F L 79 20 129/79 04/24/18 13:00 96.2 F L 84 20 120/73 18 12:45 96.2 F L 83 20 121/79 03/02/18 12:12 86 03/02/18 12:10 97.5 F 84 18 114/73 18 12:08 86 03/02/18 12:06 86 119/80 03/02/18 12:04 97.5 F 87 18 119/80 03/02/18 12:02 86 7 L 03/02/18 12:00 97.5 F 86 14 95/74 03/02/18 11:58 16 03/02/18 11:56 97.6 F 63 18 116/88 03/02/18 11:54 15 03/02/18 11:52 21 03/02/18 11:50 97.6 F 85 20 116/50 03/02/18 11:48 86 0 L 03/02/18 11:46 13 03/02/18 11:44 82 03/02/18 11:42 97.1 F 84 14 112/90 03/02/18 11:40 84 03/02/18 11:38 78 03/02/18 11:37 97.1 F 85 20 129/58 Pulse Ox 03/03/18 07:00 03/03/18 05:04 93 03/03/18 04:44 97 03/03/18 00:50 95 03/02/18 20:22 98 03/02/18 16:58 95 03/02/18 14:41 97 03/02/18 14:15 95 03/02/18 13:45 96 03/02/18 13:30 98 03/02/18 13:15 95 03/02/18 13:00 99 03/02/18 12:45 99 03/02/18 12:12 100 03/02/18 12:10 100 03/02/18 12:08 100 03/02/18 12:06 100 03/02/18 12:04 100 03/02/18 12:02 100 03/02/18 12:00 99 03/02/18 11:58 87 03/02/18 11:56 86 03/02/18 11:54 03/02/18 11:52 03/02/18 11:50 100 03/02/18 11:48 100 03/02/18 11:46 98 03/02/18 11:44 97 03/02/18 11:42 97 03/02/18 11:40 98 03/02/18 11:38 83 03/02/18 11:37 100 Intake and Output - 8hrs 03/02/18 03/02/18 03/03/18 03/03/18 13:59 21:59 05:59 13:59 Intake: IV 1800 / 1800 440 / 440 1081 / 1081 240 / 240 Intake Oral Amount 530 / 530 400 / 400 200 / 200 Breakfast 200 / 200 Dinner 355 / 355 Output: Output, Drainage Amount 90 / 90 40 / 40 Right Hip 90 / 90 40 / 40 Output, Urine Amount 750 / 750 500 / 500 400 / 400 Output, Estimated Blood Loss 300 / 300 Amount Other: Percent Meal Consumed Breakfast 100% Dinner 75% Drains Hemovac Negative Pressure Drain Right Hip Hemovac Number of Voids 1 Weight 104.326 kg 103.986 kg Weight Measurement Method Standing Scale Assessment: Right total hip replacement doing well Plan: Mobilize with physical therapy and occupational therapy. Deep vein thromboses prophylaxis with pneumatic sequential devices and aspirin. Pain control with IV and oral medication at the current time.
[2018-03-03] MEDS ORDERED: TERBINAFINE HCL 250 MG PO SCH (09:00)
[2018-03-03] MEDS ORDERED: PROPRANOLOL ER 60 MG CAPSULE PO SCH (09:00)
[2018-03-03] MEDS ORDERED: DULOXETINE 60 MG CAPSULE PO SCH (09:00)
[2018-03-03] MEDS ORDERED: Nalbuphine Inj 20 MG/ML Ampule IVP PRN (09:06)
--- NOTE | 2018-03-03 10:29 | CRNA.PROGR ---
Anesthesia Note - Progress Notes Anesthesia Progress Note: Post OP Anesthesia Note Pt is sitting up in bed, she has been up to side of bed and standing X2, she is waiting for PT. She has been tolerating a regular diet, denies any residual problems from GETA. Pain is well under control. Vital Signs (Last 8 hours) Temp Pulse Pulse Resp BP BP Pulse Ox 03/03/18 08:25 97 F 76 16 99/56 96 03/03/18 07:00 78 16 03/03/18 05:04 93 03/03/18 04:44 97.5 F 82 20 99/58 97
--- NOTE | 2018-03-03 11:23 | CONSULT ---
Consult Note - Consult Primary Care Provider: Rick Caballero MD HPI - History of Present Illness History of Present Illness: This very nice 57-year-old female who comes in for right hip replacement hospitalist service was consulted for hypertension and migraines. Patient is doing well denies chest pain nausea vomiting she did have a previous admission for chest pain but previously from that had a negative stress test and was discharged home has complaints at present time and is a comfortable pain is controlled Past Medical History Medical History: 1.Migraine with aura. 2. Benign hypertension. 3. Anxiety. 4. Depression. 5. Hyperlipidemia. 6. Degenerative disc disease, cervical. 7. Obesity, with dietary plan to reduce weight Surgical History: 1.Appendectomy. 2. Hysterectomy. 3. Other musculoskeletal srg 2014 (fussion of back s1 l5). 4. Total Hip Replacement 2007 (left ). 5. Cholecystectomy in 2017 Pertinent Family History: Her dad had a pacemaker, grandparent had a heart attack Past Social History: Does not smoke or drink alcohol. . Has healthy children, 3 of them. Lives in [place], [place]. Tobacco Use: Never Smoker In the Past 12 Months, Have Used or Abuse Any of the Following Substance: None Review of Systems - Review of Systems All Systems: Reviewed & No Additional Complaints Except as Stated - Cardiovascular Cardiovascular: DENIES: Negative System Review, Chest Pain, Edema, Syncope, Palpitations, Orthopnea, Paroxysmal Nocturnal Dyspnea, Other, See HPI - Gastrointestinal Gastrointestinal / Abdominal: DENIES: Negative System Review, Nausea, Vomiting, Diarrhea, Constipation, Abdominal Pain, Bloody Stool, Poor Appetite, Heartburn, Regurgitation, Bloating, Lactose Intolerance, Melena, Bright Red Blood per Rectum, Other, See HPI - Genitourinary Genitourinary: DENIES: Negative System Review, Pain, Burning, Hematuria, Incontinence, Urgency, Hesitant Stream, Decreased Stream, Nocutria, Discharge, Sexual Dysfunction, Other, See HPI Medication / Allergies Home Medications: Home Medications 3 Medication Instructions Recorded Confirmed Type cyclobenzaprine 10 mg tablet 10 mg PO TID PRN #30 tab 08/27/17 03/02/18 Rx naproxen 500 mg tablet 500 mg PO Q12H #30 tab 11/04/17 03/02/18 Rx omeprazole magnesium 20 mg 20 mg PO DAILY #30 tab 12/17/17 03/02/18 Rx tablet,delayed release propranolol ER 60 mg capsule,24 60 mg PO DAILY #30 cap.sa.24h 12/17/17 03/02/18 Rx hr,extended release duloxetine 60 mg capsule,delayed 1 cap PO DAILY #90 cap 01/01/18 03/02/18 Rx release trazodone 150 mg tablet 1 tab PO QHS #90 tab 01/01/18 03/02/18 Rx terbinafine HCl 250 mg tablet 250 mg PO QDAY #30 tab 01/07/18 03/02/18 Rx tramadol 50 mg tablet 50 mg PO Q6-8H PRN #50 tab 02/22/18 03/02/18 Rx Atorvastatin Calcium 20 mg PO DAILY 03/02/18 03/02/18 History Topiramate 25 - 50 mg PO BID MDD Mirgrain 03/02/18 03/02/18 History prophylaxis Allergies/Adverse Reactions: Allergies 3 Allergy/AdvReac Type Severity Reaction Status Date / Time codeine AdvReac Severe NOT Verified 03/02/18 06:27 APPLICABLE diazepam [From Valium] AdvReac Mild NOT Verified 03/02/18 06:27 APPLICABLE hydrocodone AdvReac Mild headache Verified 03/02/18 06:27 Exam - Vitals Vital Signs: Vital Signs Temperature 97 F Temperature Source Temporal Artery Scan Pulse Rate [Apical] 78 Pulse Rate [Pulse Oximeter] 76 Pulse Rate 86 Respiratory Rate 16 Blood Pressure [Left Arm] 99/56 Blood Pressure [Left Radial 99/58 Artery] Blood Pressure 114/73 Pulse Ox 96 Oxygen Flow Rate 1 Oxygen Delivery Method Room Air Height 5 ft 7 in Weight 229 lb 4 oz - General General Appearance: No Acute Distress, Cooperative - Respiratory Respiratory Exam: POSITIVE: Clear to Auscultation - Bilaterally, Breathing Non Labored, Normal To Percussion, Normal to Percussion and Palpation - Cardiovascular Cardiovascular Exam: POSITIVE: RRR, No Murmur, No Clicks, No Gallops, No Rubs, PMI Non-Displaced - GI/Abdominal GI/Abdominal Exam: POSITIVE: Normal Bowel Sounds, Non Tender, Non Distended, Soft, No Masses, No Hepatomegaly, No Splenomegaly, No Organomegaly - Extremities Extremities Exam: POSITIVE: No Clubbing Present, No Edema Present, No Cyanosis Present Results - Labs CBC and BMP: 03/03/18 04:12 03/03/18 04:12 Assessment and Plan - Patient Problems (1) Arthritis of right hip Current Visit: No Status: Acute Comment: Patient deferred to Dr. Shepherd for pain and DVT prophylaxis patient is on aspirin continue PTOT Code(s): M16.11 - Unilateral primary osteoarthritis, right hip (2) Depression Current Visit: No Status: Acute Comment: Stable at present time Code(s): F32.9 - Major depressive disorder, single episode, unspecified (3) HTN (hypertension) with goal to be determined Current Visit: No Status: Acute Onset Date: 12/24/15 Comment: Stable on beta zenia Code(s): I10 - Essential (primary) hypertension
--- NOTE | 2018-03-03 15:21 | PTI REPORT ---
Thank you for the referral of Connie Ramos. She was seen on 03/02/18 for an inpatient evaluation status post right total hip replacement with an anterior approach. SUBJECTIVE: The patient is a 57-year-old female who underwent a right total hip replacement with an anterior approach this morning. The patient states that she is doing very well. She denies any pain and states that she just has some tightness of her right hip. The patient reports that she lives in [place] with her . They state that they have a ramp that leads into their house and they have stairs in their house, but only to the basement, otherwise everything else is on one level. The patient states that she was using a single point cane at times prior to her surgery secondary to her hip pain and denies any falls over the last three months. The patient states that she did undergo a right total hip replacement in 2007 and has been doing well with that. PAST MEDICAL HISTORY: Past medical history can be found in the patient's medical record. OBJECTIVE FINDINGS: General observations: The patient was alert and oriented to setting upon PT arrival. The patient was on one liter of oxygen and did have an IV in place. The patient also did have a drain and a Prevena dressing in place. The patient did not have a Corbett and stated that she did need to get up and try to use the restroom. The patient denied any lightheadedness or dizziness. Her blood pressure was 117/74. Bed mobility: The patient required mod assist in order to move from supine to seated edge of bed position. Once seated edge of bed the patient denied any lightheadedness or dizziness. Her blood pressure was 117/80 and her oxygen saturation was at 94%. The patient performed seated edge of bed to supine transfer with mod assist x1 in order to help with her right lower extremity and max verbal cueing for bed mobility. Transfers: The patient was able to move from a seated to standing position. We did raise the bed slightly and also did instruct the patient for proper hand placement and placement of the right lower extremity before she stood. Once in a standing position the patient denied any lightheadedness or dizziness. The patient was issued a walker of appropriate height and we ambulated 5 feet to the bedside commode, working on a turn with the walker and backing up. The patient required max verbal cueing and contact guard assist x1. The patient was able to go from a standing to seated onto the commode position with contact guard assist x1 and verbal cueing. Following toileting activity the patient was able to perform a seated to standing transfer from the commode with verbal cueing for proper hand placement and lower extremity placement. Activities of daily living: The patient was able to perform toileting activity, requiring assistance in order to hand supplies. Ambulation: The patient ambulated the 5 feet toward the head of the bed. She turned and stood next to the bed. The patient stated that she became lightheaded. The patient performed a standing to seated transfer onto the bed. When sitting edge of bed the patient's blood pressure was 83/66. We did sit edge of bed x2 minutes. The patient stated that she felt better. Her blood pressure was taken again and it was within her normal range of her previous blood pressures. ASSESSMENT: The patient has good rehab potential. Problem List: Decreased range of motion of the right hip Increased pain in the right hip Decreased ability to perform transfers and ambulation Short-Term Goals: To be met by discharge from inpatient: Patient will be able to perform all transfers from bed to stand safely and independently. Patient will be able to ambulate at least 150 feet with walker and weight- bearing as tolerated on the right and do so safely. Patient will be able to ascend and descend at least 5 stairs with walker and weight-bearing as tolerated on the right and do so safely. Long-Term Goals: To be met following discharge from inpatient: Patient may be seen by outpatient physical therapy if deemed necessary upon time of discharge. TREATMENT PLAN: Patient will be seen B.I.D during the week and one time per day over the weekend as an inpatient to work on safety and independence with transfers, working on ambulation with standard walker and weight-bearing as tolerated on the right, and stair training. INITIAL TREATMENT: Treatment toady consisted of the initial evaluation followed by one unit of functional activity. The patient was left in bed with alarm set, call light within reach, and ice placed over her right hip. Following our treatment we did notify nursing staff of the patient's lowered blood pressure after standing and also that the patient was able to use the bedside commode in order for nursing staff to continue with that through the night. JALYN
--- NOTE | 2018-03-03 16:59 | PT.PROG ---
Progress Note Progress Note: s. Patient stated that she is feeling good this morning. O. Patient ambulated 80 feet to the wheelchair and was wheeled to the therapy gym where she had heat to her hip then performed supine exercises in the form of ; heel slides, quad sets, glut sets, ankle pumps, short arc quads, seated marches, long arc quads, ankle pumps all x 15 bilaterally. Patient performed sit to stands x 10 then ambulated approximately 80 feet to the wheelchair and was returned to her room where she was left in chair with alarm and call light. A. Patient tolerated therapy well this morning, she continues to struggle with weakness and fatigues easily, She would benefit from continued skilled therapy to increase strength and mobility. P. Continue POC.
--- NOTE | 2018-03-03 17:00 | PT.PROG ---
Progress Note Progress Note: s. Patient stated that she is feeling good this afternoon. O. Patient ambulated 100 feet to the wheelchair and was wheeled to the therapy gym where she had heat to her hip then performed supine exercises in the form of ; heel slides, quad sets, glut sets, ankle pumps, short arc quads, seated marches, long arc quads, ankle pumps all x 15 bilaterally. Patient performed sit to stands x 10 then ambulated approximately 80 feet to the wheelchair and was returned to her room where she was left in chair with alarm and call light. A. Patient tolerated therapy well this afternoon, she continues to struggle with pain, She would benefit from continued skilled therapy to increase strength and mobility. P. Continue POC.
[2018-03-03] MEDS: DULOXETINE 60 MG CAPSULE PO SCH (21:29)
[2018-03-03] MEDS: PROPRANOLOL ER 60 MG CAPSULE PO SCH (21:30)
[2018-03-03] MEDS: TERBINAFINE HCL 250 MG PO SCH (21:31)
[2018-03-03] MEDS: TRAZODONE 150 MG PO SCH (21:31)
[2018-03-04] MEDS: oxyCODONE/APAP 7.5/325 Tab 1 TAB TAB PO PRN ×2 (01:14→08:12)
[2018-03-04 05:23] LABS: Hematocrit [HCT] 34.9 % (37.0-47.0); Hemoglobin [HGB] 11.2 g/dL (12.0-16.0); MEAN CORPUSCULAR HGB CONC 32.1 g/dL (33-37); MEAN CORPUSCULAR VOLUME 93.6 FL (81-99); MEAN PLATELET VOLUME 11.5 FL (7.4-12.2); RED BLOOD COUNT 3.73 10^6/uL (4.20-5.40)
[2018-03-04 06:01] LABS: BUN/CREATININE RATIO 17.5 (6-20)
[2018-03-04 08:02] VITALS: BP 110/68; RESP 18; TEMP 97.2; O2SAT 95
[2018-03-04] MEDS: ASPIRIN 325 MG EC TABLET PO SCH (08:12)
[2018-03-04] MEDS: DOCUSATE 100 MG CAPSULE PO SCH (08:12)
[2018-03-04] MEDS: OMEPRAZOLE 20 MG CAPSULE PO SCH (08:13)
--- NOTE | 2018-03-04 08:36 | ORTHO.PROG ---
Last Taken Vital Signs: Vital Signs - Last Taken Temperature 97.2 F 03/04/18 07:57 Pulse Rate 77 03/04/18 07:57 Respiratory Rate 18 03/04/18 07:57 Blood Pressure 110/68 03/04/18 07:57 Pulse Ox 95 03/04/18 07:57 Subjective: Patient feels good today would like to go home Objective: The suction dressing is in place working well no fluid within this no active issues of mild to moderate amount of swelling and thickening of the leg up around the incision site but no swelling distally no evidence of infection no fluctuance motor and sensory exam is nonfocal distally Laboratory Results 03/04/18 03/04/18 Range/Units 04:55 04:55 WBC 7.35 (4.8-10.8) 10^3/uL RBC 3.73 L (4.20-5.40) 10^6/uL Hgb 11.2 L (12.0-16.0) g/dL Hct 34.9 L (37.0-47.0) % MCV 93.6 (81-99) FL MCH 30.0 (27-31) PG MCHC 32.1 L (33-37) g/dL RDW Std Deviation 48.1 (39-50) fL RDW Coeff of Nikki 14.6 H (11.5-14.5) % Plt Count 179 (140-350) 10*3/uL MPV 11.5 (7.4-12.2) FL Sodium 140 (135-145) meq/L Potassium 3.9 D (3.8-5.2) meq/L Chloride 104 (98-112) meq/L Carbon Dioxide 27 (23-33) meq/L Anion Gap 9 (5-20) BUN 21 (7-22) mg/dL Creatinine 1.2 (0.50-1.20) mg/dL Estimated GFR 46 (>60 ml/min/1.73m(2)) BUN/Creatinine Ratio 17.50 (6-20) Glucose 83 (78-110) mg/dL Calculated Osmolality 291.0 (267-292) mOsm/kg Calcium 8.8 (8.7-10.7) mg/dL Vital Signs (24 hrs) Temp Pulse Resp BP Pulse Ox 03/04/18 07:57 97.2 F 77 18 110/68 95 03/04/18 04:00 97.7 F 76 20 139/79 97 03/04/18 01:00 97.1 F 84 20 118/69 99 03/03/18 20:01 97.0 F 85 20 112/61 95 03/03/18 17:00 97 F 80 80 H 123/64 93 03/03/18 11:39 97.1 F 75 16 101/59 96 No calf, popliteal, adductor hiatus or thigh pain except for the incision site. Assessment: Right total hip replacement overall doing well Plan: We will could potentially having the patient go home today after therapy I'll see her at noon time if she is doing well we can consider discharge at that point in time. She'll see the hospitalist make sure is no other issues going on obviously before they discharge her. Continue with current
--- NOTE | 2018-03-04 10:05 | PT.PROG ---
Progress Note Progress Note: S: Pt reports she is sore today but was excited to ambulate all the way to the PT gym. O: Treatment consisted of: 20' MH to R hip in HL, followed by 20 reps of the following: quad sets, heel slides, SA, hip ab/adduction, red theraband resisted 4-way ankle, glute sets; sit to stands x10, #2 box step ups 2x5, ambulation 130' x5 with four point walker and CGA. A: Pt tolerated treatment well, required one sitting rest break to complete ten reps of #2 box step ups. P: Continue per POC
--- NOTE | 2018-03-04 10:18 | OT.PROG ---
Progress Note Progress Note: Occupational Therapy: S: pt stated she was feeling good today but her shoulder was a little sore from transferring herself. O: pt completed RTB exercises of biceps x15, chest pulls x15, triceps x15, flexion x15, abduction x15, extension x15. pt competed 3# BUE exercises of flexion x15, chest press x15, IROT/EROT x15. A: pt tolerated session well and has made gains in self care routine and UE strength. P: continue POC
--- NOTE | 2018-03-04 11:27 | DCSUMMARY ---
Hospitalization Summary Hospital Course: Final Discharge Diagnosis: Right hip replacement Hypertension Diagnostic Data, Laboratory Data, and Procedures of Signifigance: History and Physical pertinent to Admission: Past Medical History Medical History: 1.Migraine with aura. 2. Benign hypertension. 3. Anxiety. 4. Depression. 5. Hyperlipidemia. 6. Degenerative disc disease, cervical. 7. Obesity, with dietary plan to reduce weight Surgical History: 1.Appendectomy. 2. Hysterectomy. 3. Other musculoskeletal srg 2014 (fussion of back s1 l5). 4. Total Hip Replacement 2007 (left ). 5. Cholecystectomy in 2017 Pertinent Family History: Her dad had a pacemaker, grandparent had a heart attack Past Social History: Does not smoke or drink alcohol. . Has healthy children, 3 of them. Lives in [place], [place]. Tobacco Use: Never Smoker Course of Hospitalization: Is a very nice 57-year-old female who underwent right hip replacement did well postop with physical therapy hospitalist service was consult for hypertension which remained stable throughout she was cleared by [facility] this morning which I spoke to 2 to go home I also spoke to Dr. Shepherd on the phone and let him know the decision he was fine for him and the patient go home and she will be doing the aspirin twice a day for DVT prophylaxis as recommended by Dr. Shepherd and leg compression and the patient has a pair as well as she will follow-up with Dr. Shepherd and continue physical therapy as an outpatient all questions were answered patient is do not have any more questions and was very happy of the care and happy to be discharged home. On the date of discharge, the patient was examined: Gen.: No acute distress, alert, nontoxic Heart: Regular rate and rhythm, no murmurs, clicks, gallops, or rubs Lungs: Clear to auscultation bilaterally, breathing is nonlabored Abdomen/GI: Normal tones on auscultation, soft, nontender, nondistended Musculoskeletal/extremities: No clubbing, cyanosis, or edema Vitals reviewed and are listed below Vital Signs (24 hrs) Temp Pulse Pulse Resp BP Pulse Ox 03/04/18 07:57 97.2 F 77 18 110/68 95 03/04/18 07:00 76 16 03/04/18 04:00 97.7 F 76 20 139/79 97 03/04/18 01:00 97.1 F 84 20 118/69 99 04/25/18 20:01 97.0 F 85 20 112/61 95 03/03/18 17:00 97 F 80 80 H 123/64 93 03/03/18 11:39 97.1 F 75 16 101/59 96 Assessment and Plan: 1. As per discharge assessments above 2. Disposition: Home 3. Condition on discharge, stable and improved. 4. Diet: regular diet 5. Activities: resume normal activities 6. Follow-Up: 1. PCP and Dr. Shepherd appointment is already made 2. 7. Medications at the Time of Discharge: Home Medications 3 Medication Instructions Recorded Confirmed Type cyclobenzaprine 10 mg tablet 10 mg PO TID PRN #30 tab 08/27/17 03/02/18 Rx naproxen 500 mg tablet 500 mg PO Q12H #30 tab 11/04/17 03/02/18 Rx omeprazole magnesium 20 mg 20 mg PO DAILY #30 tab 12/17/17 03/02/18 Rx tablet,delayed release propranolol ER 60 mg capsule,24 60 mg PO DAILY #30 cap.sa.24h 12/17/17 03/02/18 Rx hr,extended release duloxetine 60 mg capsule,delayed 1 cap PO DAILY #90 cap 01/01/18 03/02/18 Rx release trazodone 150 mg tablet 1 tab PO QHS #90 tab 01/01/18 03/02/18 Rx terbinafine HCl 250 mg tablet 250 mg PO QDAY #30 tab 01/07/18 03/02/18 Rx tramadol 50 mg tablet 50 mg PO Q6-8H PRN #50 tab 02/22/18 03/02/18 Rx Atorvastatin Calcium 20 mg PO DAILY 03/02/18 03/02/18 History Topiramate 25 - 50 mg PO BID MDD Mirgrain 03/02/18 03/02/18 History prophylaxis oxyCODONE/APAP 7.5/325 Tab 1 - 2 tab PO Q4-6H PRN #50 tab 03/04/18 Rx [Percocet 7.5/325 Tab] 8. Time, care, counseling and coordination of care for this discharge is greater than 30 minutes. Exam - Vitals Vital Signs: Vital Signs Temperature 97.2 F Temperature Source Temporal Artery Scan Pulse Rate [Apical] 76 Pulse Rate [Pulse Oximeter] 77 Pulse Rate 86 Respiratory Rate 18 Blood Pressure [Left Arm] 110/68 Blood Pressure [Left Radial 99/58 Artery] Blood Pressure 114/73 Pulse Ox 95 Oxygen Flow Rate 1 Oxygen Delivery Method Room Air Height 5 ft 7 in Weight 232 lb Patient Problems - Patient Problem List (1) Arthritis of right hip Current Visit: No Status: Acute Code(s): M16.11 - Unilateral primary osteoarthritis, right hip Category: Medical (2) Depression Current Visit: No Status: Acute Code(s): F32.9 - Major depressive disorder, single episode, unspecified Category: Medical (3) HTN (hypertension) with goal to be determined Current Visit: No Status: Acute Onset Date: 12/24/15 Code(s): I10 - Essential (primary) hypertension Category: Medical
--- NOTE | 2018-03-05 16:14 | OTI REPORT ---
Thank you for the referral of Connie Ramos. She was seen on 03/03/18 for an occupational therapy inpatient evaluation status post right total hip arthroplasty. SUBJECTIVE: The patient is a 57-year-old female. The patient lives in [place] with her . Prior to admission she was independent with all ADLs. PAST MEDICAL HISTORY: Past medical history can be found in the patient's medical record. OBJECTIVE FINDINGS: Bed mobility: Today the patient was able to come from supine to sit with increased time and min assist. While sitting edge of bed she reported some pain in the hip while bending approximately a foot past her knee in the distal aspect. The patient was instructed in her hip precautions which includes no straight leg raises. Also, we don't want her bending past the point of pain. Activities of daily living: The patient was issued a rug cleaner, a sock aide, a bath sponge, and a long handled shoehorn to increase her independence at home. Today the patient was instructed in how to use the adaptive devices. She was able to use the rug cleaner and the sock aide with verbal cues and demonstration. The patient already has a high rise toilet seat as well as a shower chair in her bathtub/shower combination at home. ASSESSMENT: The patient would benefit from at least one more session of occupational therapy to address ADLs and functional transfers. She may benefit from upper extremity strengthening for increased independence with her functional transfers before going home. The patient is doing well with adaptive devices and this will help with her safety and following precautions. Short-Term Goals: To be met by discharge from inpatient: Patient will be able to use adaptive devices for modified independence with lower extremity dressing. Patient will be able to complete all functional transfers independently and safely. Long-Term Goals: To be met following discharge from inpatient: Patient will return home, demonstrating independence and safety with all activities of daily living and functional transfers. TREATMENT PLAN: Patient will be seen B.I.D during the week and one time per day over the weekend as an inpatient to address the above goals and objectives. INITIAL TREATMENT: Treatment today consisted of the evaluation followed by demonstration of adaptive devices and functional transfers with min assist. JALYN
== END 2018-03-04 11:50 | disposition home or self-care (01) | DRG 470 ==
LOC: OPS 03-02 05:52 → MED/SURG 03-02 12:29
PROVIDERS: ADMIT Orthopaedic Surgery; ATTEND Orthopaedic Surgery